=== PATIENT | female | born 1955 | race Caucasian/White ===

== ENCOUNTER 2018-06-28 13:27 | Inpatient (IN) | payer OTHER ==
[~2018-06-28] VITALS: Ht 167.6 cm; Wt 81.6 kg
[~2018-06-28 13:27] MED LIST: ACETAMINOPHEN325 MG PER TUBE; ASPIRIN325 PO; BACTRIM DS TAB1 EACH PO; BUSPIRONE HCL10 MG PER TUBE; CILOSTAZOL50 MG PO; CLOBETASOL PROP50 M1; COLACE100 MG; COLACE100 MG PO; FISH OIL 1,0001 EAC5 PO; FLONASE 0.05%50 MCG; FLUOXETINE HCL20 M1 PER TUBE; GLUCERNA 1.21500 ML; GLYCOLAX POWDER17 G1 PO; KEPPRA 500 MG500 M1; KLOR-CON 1010 MEQ; LEVOTHYROXIN0.137 M1 PER TUBE; MAGOX 400400 MG PER TUBE; MULTIVITAMINS1 EAC7 PER TUBE; OCEAN45 ML; ORAGEL; PROSTAT LIQUID PER TUBE; PROTONIX40 M1 PER TUBE; SIMVASTATIN40 MG PO; TERBINAFINE15 GM; TRAZODONE HCL50 MG PER TUBE; ZETIA10 MG PER TUBE; [UNRECOGNIZED DRUG - OTHER]
[2018-06-28 13:29] VITALS: BP 114/62
[2018-06-28 13:47] LABS: ABSOLUTE NEUTROPHILS 9.6 thou/uL (1.4-8.2); BASOPHILS 0.3 % (0.0-2.0); EOSINOPHILS 0.7 % (0.0-3.0); HEMOGLOBIN 11.3 gm/dL (12.0-15.0); LYMPHOCYTES 13.4 % (24.0-44.0); MCH 32.3 pg (26.0-34.0); MCHC 33.3 g/dL (28.0-37.0); MCV 97.3 fL (80.0-100.0); MONOCYTES 8.2 % (1.0-8.0); POLYS 77.4 % (36.0-66.0); RDW 14.2 % (10.5-14.5); WBC 12.4 thou/uL (4.0-11.0)
[2018-06-28 13:55] LABS: CALCIUM 9.1 mg/dL (8.5-10.1); CREATININE 1.7 mg/dL (0.6-1.0); POTASSIUM 4.5 mmol/L (3.5-5.1)
[2018-06-28] MEDS ORDERED: KEPPRA 100100 MG/M1 PER TUBE (14:10)
[2018-06-28] MEDS ORDERED: SYNTHROID112 MC1 PER TUBE (14:12)
[2018-06-28] MEDS ORDERED: MIRALAX17 GM PER TUBE (14:13)
[2018-06-28 14:15] LABS: LARGE PLATELETS FEW; PLATELET COUNT 65 thou/uL (150-400); PLATELET ESTIMATE SLIGHTLY DECREASED
[2018-06-28] MEDS ORDERED: POTASSIUM20 MEQ/15 PER TUBE (14:15)
[2018-06-28] MEDS ORDERED: OMEPRAZOLE 20 M20 M1 PER TUBE (14:16)
[2018-06-28] MEDS ORDERED: SENNA PLUS TAB1 EACH PER TUBE (14:16)
[2018-06-28] MEDS ORDERED: VITAMIN B-12500 MCG PER TUBE (14:18)
[2018-06-28] MEDS ORDERED: DANDRUFF 1% SH325 ML TOP (14:20)
[2018-06-28 14:23] LABS: BE(vivo) -1.6 mmol/L (-2 to +3); HCO3 22.1 mmol/L (22.0-26.0); PCO2 34.2 mmHg (35.0-45.0); PO2 69.5 mmHg (80.0-100.0); pH 7.429 (7.360-7.450); sO2 94.5 % (92.0-98.0)
[2018-06-28] MEDS ORDERED: NYSTATIN15 G3 TOP (14:38)
[2018-06-28 16:14] VITALS: BP 124/64
[2018-06-28 18:37] VITALS: BP 131/68
[2018-06-28 19:59] VITALS: BP 142/64
[2018-06-29 04:41] VITALS: BP 115/42
[2018-06-29 05:27] LABS: CALCIUM 9.4 mg/dL (8.5-10.1); CREATININE 1.7 mg/dL (0.6-1.0); MAGNESIUM 2.2 mg/dL (1.8-2.4)
[2018-06-29 05:38] LABS: POTASSIUM 4.7 mmol/L (3.5-5.1)
--- NOTE | 2018-06-29 05:58 | NUR ---
Received pt from ED at 1850. Pt resting in bed. Hx of stroke with left sided weakness. Came in after being dx with HCAP from her residency at [facility]. Shes non-verbal with a fixed gaze. Ischemic dementia. She was place on 4L NC. at bedside signed conscent and provided medical hx. She has no skin issues. Last bm on 06/29/18. ACHS. No identified needs at the moment. Will continue to monitor.
[2018-06-29 07:58] VITALS: BP 132/53
--- NOTE | 2018-06-29 09:32 | NUR ---
chart review, report from bedside nurse team. pt cristina at bedside. intro to cm, transition of care, ltc, and dcp. pt lying in bed, eyes open, she nonverbal, o2 per nc 3 L noted. reports " lives at [facility], 9 years. she is total care. bedbound. gets bed bath or up to shower chair. tri lift for transfers. only eats through tube feeding. she no usually on any oxygen. she will go back to [facility] when discharged. still working hs shift at [employer] 3pm-1am, not quiet retired."/cristina. will cont following as needed for dc needs. cm team to provided updates to cog. when dc will need stretcher transport back to [facility] rt pt unable to support her body position and is bed bound. dcp [facility]
[2018-06-29 09:51] LABS: HEMOGLOBIN 11.4 gm/dL (12.0-15.0); WBC 25.6 thou/uL (4.0-11.0)
[2018-06-29 09:54] LABS: HEMATOCRIT 34.3 % (37.0-47.0); MCH 32.2 pg (26.0-34.0); MCHC 33.2 g/dL (28.0-37.0); RBC 3.54 mil/uL (4.20-5.00)
--- NOTE | 2018-06-29 09:59 | 2DMMODE ---
[place] [address] [facility] [place] [address] 2 D/M-MODE ECHOCARDIOGRAM Name: KALIA LIRAN Room #: 462-P ADM IN M.R.#: [id number] ������������� Admission: 06/28/18 ������������� Attend Phys: Joe Poole, Discharge: ��� ������������� ��� Date of : 51 Date of Service: 06/29/18 0958 �� Report #: [id number] �������� ��������������������������������������������[id number] THIS REPORT FOR: //name// APPROVED REPORT Study performed: 06/29/2018 08:14:44 EXAM: Comprehensive 2D, Doppler, and color-flow Echocardiogram Patient Location: Bedside Room #: 462 Status: routine BSA: 2.00 BP: 115/42 mmHg Rhythm: Sinus arrhythmia/HR ranged 70s-110s Other Information Study Quality: Adequate Technically limited study due to nonverbal patient, no cooperation. Indications Short of breath, elevated BNP. Hx: CVA, HTN, DM. 2D Dimensions RVDd: 28.59 mm IVSd: 9.51 (7-11mm) LVOT Diam: 20.30 (18-24mm) LVDd: 49.94 mm PWd: 9.59 (7-11mm) Ascending Ao: 33.75 (22-36mm) LVDs: 34.18 (25-40mm) Aortic Root: 33.65 mm Volumes Left Atrial Volume (Systole) Single Plane 4CH: 38.22 mL Single Plane 2CH: 54.42 mL LA ESV Index: 25.00 mL/m2 Aortic Valve AoV Peak Talat.: 1.72 m/s AO Peak Gr.: 11.78 mmHg LVOT Max P.55 mmHg LVOT Max V: 1.07 m/s CRUZ Vmax: 2.01 cm2 Mitral Valve E/A Ratio: 1.4 [facility] [place] [address] 2 D/M-MODE ECHOCARDIOGRAM Name: KALIA LIRA SANDRINE Room #: 462-P [facility] IN M.R.#: [id number] ������������� Admission: 06/28/18 ������������� Attend Phys: Joe Poole, Discharge: ��� ������������� ��� Date of : 51 Date of Service: 06/29/18 0958 �� Report #: [id number] �������� ��������������������������������������������[id number] MV Decel. Time: 168.83 ms MV E Max Talat.: 1.21 m/s MV A Talat.: 0.86 m/s MV PHT: 48.96 ms IVRT: 76.12 ms Pulmonary Valve PV Peak Talat.: 0.87 m/s PV Peak Gr.: 3.06 mmHg Left Ventricle The left ventricle is normal size. There is normal left ventricular wall thickness. Left ventricular systolic function is normal. LVEF is 50-55%. No consistent pattern for assessment of diastolic function. Right Ventricle The right ventricle is normal size. The right ventricular systolic function is normal. Atria The left atrium size is normal. The right atrium size is normal. Aortic Valve Aortic valve is trileaflet. Mild aortic regurgitation. There is no aortic valvular stenosis. Mitral Valve The mitral valve is normal in structure. Minimal mitral annular calcification. Moderate to severe mitral regurgitation Tricuspid Valve The tricuspid valve is normal in structure. There is no tricuspid valve regurgitation noted. Unable to assess PA pressure. Pulmonic Valve The pulmonary valve is normal in structure. There is no pulmonic valvular regurgitation. Great Vessels The aortic root is normal in size. The ascending aorta is normal in size. IVC is not well visualized. Pericardium Small posterior pericardial effusion noted. [facility] [address] [place] [address] 2 D/M-MODE ECHOCARDIOGRAM Name: KALIA LIRA Room #: 462-P [facility] IN M.R.#: [id number] ������������� Admission: 06/28/18 ������������� Attend Phys: Joe Poole, Discharge: ��� ������������� ��� Date of : 51 Date of Service: 06/29/18 0958 �� Report #: [id number] �������� ��������������������������������������������[id number] <Conclusion> The left ventricle is normal size. LVEF is 50-55%. Aortic valve is trileaflet. Mild aortic regurgitation. The mitral valve is normal in structure. Minimal mitral annular calcification. Moderate to severe mitral regurgitation The tricuspid valve is normal in structure. There is no tricuspid valve regurgitation noted. Unable to assess PA pressure. The pulmonary valve is normal in structure. Small posterior pericardial effusion noted. ��������������������������������������������� <ELECTRONICALLY SIGNED> ���������������������������������������� By: Joshua Chaves MD ��������������������������������������������� 06/29/1858 7 Joshua Chaves MD /INF
--- NOTE | 2018-06-29 10:28 | NUR ---
Consult for TF recommendation. Pt's usual TF are Jevity 1.2, 45 ml/hr for 22 hr/day. Hospital equivalent would be Jevity 1.5. Recommend Jevity 1.5, 35 ml/hr for 24 hr/day, with additional water flushes to meet fluid needs.
[2018-06-29 10:29] LABS: PROTIME 10.8 Seconds (9.3-11.4)
[2018-06-29 12:32] LABS: SOURCE RIGHT THORACENTESIS
[2018-06-29 12:33] LABS: CLARITY CLOUDY; COLOR LIGHT BROWN; TOTAL VOLUME 58 mL
[2018-06-29 12:37] LABS: SOURCE RIGHT THORACENTESIS
[2018-06-29 13:08] LABS: BF NUCLEATED CELLS 7467; BF RBC 15680
[2018-06-29 13:37] LABS: BF NEUTROPHILS 63
[2018-06-29 13:38] LABS: BF MACROPHAGE 19
[2018-06-29 16:18] VITALS: BP 106/50
[2018-06-29 17:20] LABS: URINE BILIRUBIN NEGATIVE (Negative); URINE BLOOD 3+ (Negative); URINE CLARITY CLOUDY; URINE COLOR YELLOW; URINE GLUCOSE-RANDOM* NEGATIVE (Negative); URINE KETONES TRACE (Negative); URINE NITRITE-REFLEX NEGATIVE (Negative); URINE PROTEIN (DIPSTICK) 2+ (Negative); URINE UROBILINOGEN 0.2 E.U./dl (0.2-1.0)
[2018-06-29 17:23] LABS: URINE LEUKOCYTES-REFLEX 3+ (Negative)
[2018-06-29 17:33] LABS: CASTS None Seen /LPF (None Seen); CRYSTALS None Seen /LPF (None Seen); SQUAMOUS >10 Many /LPF (0-3); URINE WBC-REFLEX >25 Many /HPF (0-5)
[2018-06-29 17:35] LABS: URINE RBC 0-2 Rare /HPF (0-2)
--- NOTE | 2018-06-29 17:43 | NUR ---
PT A&OX1, VSS, PT UNABLE TO COMMUNICATE WANTS AND NEEDS; NON VERBAL. PT HAS BEEN AT BEDSIDE. THORACENTESIS, UA, AND MRSA SPECIMEN COLLECTED TODAY. PT HAS BEEN TURNED Q2 AND HAS BEEN RESTING IN BED. PT HAS HAD BREATHING TREATMENTS, ON 4L OXYGEN, NO SIGNS OF DISTRESS. WILL CONTINUE TO MONITOR.
[2018-06-29 21:02] VITALS: BP 117/46
--- NOTE | 2018-06-30 00:51 | NUR ---
ASSUMED PT CARE 1899. PT NON VERBAL. VSS. ALERT TO SELF. IV DRESSING C/D/I, NO SIGNS OF INFILTRATION. AT PT BEDSIDE. REASSESSMENT COMPLETE. REPORT GIVEN TO ONCOMING NURSE.
--- NOTE | 2018-06-30 01:41 | NUR ---
ASSUMED CARE AROUND 0115. UPON ARRIVAL TO THE PT'S ROOM FOR ROUNDING, NOTED THAT IV CAME OUT. INSERTED NEW ONE ON R HAND 22G. PT TOLERATED GOOD. IVF RESUMED AND IV ATB MEROPENEM ADMINISTERED. AT BEDSIDE.
[2018-06-30 04:32] VITALS: BP 117/48
[2018-06-30 05:22] LABS: HEMATOCRIT 33.3 % (37.0-47.0); HEMOGLOBIN 10.8 gm/dL (12.0-15.0); MCH 32.4 pg (26.0-34.0); MCHC 32.5 g/dL (28.0-37.0); MCV 99.7 fL (80.0-100.0); RBC 3.34 mil/uL (4.20-5.00); RDW 14.6 % (10.5-14.5); WBC 22.6 thou/uL (4.0-11.0)
[2018-06-30 05:46] LABS: CALCIUM 9.3 mg/dL (8.5-10.1); CREATININE 1.8 mg/dL (0.6-1.0); MAGNESIUM 2.3 mg/dL (1.8-2.4); POTASSIUM 4.4 mmol/L (3.5-5.1)
[2018-06-30 05:46] LABS: ALBUMIN 2.5 g/dL (3.4-5.0); CALCIUM 9.3 mg/dL (8.5-10.1); CREATININE 1.8 mg/dL (0.6-1.0); PHOSPHORUS 3.7 mg/dL (2.5-4.9); POTASSIUM 4.4 mmol/L (3.5-5.1)
[2018-06-30 08:48] VITALS: BP 108/51
[2018-06-30 16:49] VITALS: BP 117/53
--- NOTE | 2018-06-30 17:22 | NUR ---
PT IS A&O TO SELF, VSS. PT IS UNABLE TO COMMUNICATE WANTS AND NEEDS AND HAS AT BEDSIDE. WHEEZING HEARD IN ALL LOBES, ON 4L OXYGEN AND RECEIVING RT. PT HAS BEEN TURNED Q2. JEVITY FEEDING HAS BEEN INCREASED FROM 20 TO GOAL 35 AND IS TOLERATING. WILL CONTINUE TO MONITOR.
[2018-06-30 19:44] VITALS: BP 123/58
--- NOTE | 2018-07-01 01:01 | NUR ---
patient is non vebal. turned q 2 hours. patient has peg tube, zero residule this shift. patient is npo.patient hob is > 60 degress. no shortness of air or distress noted at this time. patient incontient this shift, pericare and barrier cream as needed. spouse at bedside. patient ccontinues to wheeze but is relieved after getting breathing treatment. patient in bed asleep at this time breathing regular and unlaboured.
[2018-07-01 03:40] VITALS: BP 103/39
[2018-07-01 05:17] LABS: HEMOGLOBIN 10.6 gm/dL (12.0-15.0); MCH 32.6 pg (26.0-34.0); RBC 3.25 mil/uL (4.20-5.00); RDW 14.3 % (10.5-14.5)
[2018-07-01 05:19] LABS: MCHC 33.1 g/dL (28.0-37.0); MCV 98.4 fL (80.0-100.0); WBC 8.9 thou/uL (4.0-11.0)
[2018-07-01 05:32] LABS: ALBUMIN 2.3 g/dL (3.4-5.0); CALCIUM 8.8 mg/dL (8.5-10.1); CREATININE 1.8 mg/dL (0.6-1.0); PHOSPHORUS 2.3 mg/dL (2.5-4.9); POTASSIUM 4.6 mmol/L (3.5-5.1)
[2018-07-01 07:41] VITALS: BP 101/60
[2018-07-01 08:06] LABS: BODY FLUID ALBUMIN 2.7 g/dL (()); BODY FLUID AMYLASE 50 U/L (()); BODY FLUID GLUCOSE 136 mg/dL (()); BODY FLUID LDH 363 IU/L (()); BODY FLUID PROTEIN 5.7 g/dL (())
[2018-07-01 11:04] LABS: % SATURATION 28 % (20-39); IRON 61 ug/dL (50-170); TIBC 215 ug/dL (250-450)
[2018-07-01 11:12] LABS: ALBUMIN 2.3 g/dL (3.4-5.0); DIRECT BILIRUBIN 0.1 mg/dL (<0.1-0.3); TOTAL BILIRUBIN 0.3 mg/dL (<0.1-1.0)
[2018-07-01 12:10] LABS: FOLIC ACID 38.8 ng/mL (8.6-58.9)
--- NOTE | 2018-07-01 13:37 | EKG ---
[address] [place] [address] ELECTROCARDIOGRAM REPORT Name: KALIA LIRA Room #: 462-P ADM IN M.R.#: [id number] ������������������ Admission: 06/28/18 ������������������ Attend Phys: Joe Poole MD Discharge: ������������������ Date of : 51 Report #: [id number] ����������������������������������������������������������������� [id number] THIS REPORT FOR: //name// [facility] Test Date: 2018-06-30 Test Time: 10:07:45 Pat Name: KALIA LIRA Department: Room: 462 Gender: F [employer] Lab Technician: : 1955 Requested By: Earlene Rios Order Number: [id number] MD: Sarwat Xiong Measurements Intervals [place] Rate: 75 P: 64 WI: 182 QRS: 7 QRSD: 120 T: -24 QT: 477 QTc: 533 Interpretive Statements Sinus rhythm Nonspecific ST and T wave abnormality Compared to ECG 06/20/2011 08:52:50 No significant change was found Electronically Signed On 07-01-2018 13:37:37 CDT by Sarwat Xiong [email or web address] ��������������������������������������������� <ELECTRONICALLY SIGNED> ���������������������������������������� By: Sarwat Xiong MD, [facility] ��������������������������������������������� 07/01/18 1337 1007 1007 Sarwat Xiong MD, [facility] /EPI
[2018-07-01 14:04] VITALS: BP 127/41
--- NOTE | 2018-07-01 18:01 | NUR ---
OPENS EYES OCCASIONALLY NOT TO COMMAND OR WITH STIMULI. NON VERBAL. PEG TUBE WITH JEVITY AT 30CC/HR. IV LEFT HAND WITHOUT ERYTHEMA OR EDEMA. INCONTINET OF URINE AND STOOL. TURNED EVERY 2HOURS. SCDS ON. LUNGS DIMINISHED AND WHEEZY ON ROOM AIR. SIDE RAILS UP X4 BY FAMILY REQUEST. DECIDED TO MAKE HER A DNR AND VERY TEARY. EMOTIONAL SUPPORT PROVIDED. HOB UP 45 DEGREES. PLATLETS INFUSED FOR A CRITICAL LOW COUNT OF 7000.
[2018-07-01 19:32] VITALS: BP 129/51
[2018-07-02 04:29] VITALS: BP 117/50
--- NOTE | 2018-07-02 05:59 | NUR ---
Assumed care at 1845. Pt resting in bed with at bedside. VSS. On room air. Turn Q2. Incontinent Bowel and Bladder. Had a bm today. Applied barrier cream. Jevity 1.5 running at 35ml/hr. 200ml QID flushes order by for the Pegtube. AOX1. Bed in lowest position. Will continue to monitor.
[2018-07-02 06:00] LABS: HEMOGLOBIN 9.9 gm/dL (12.0-15.0); RDW 14.3 % (10.5-14.5)
[2018-07-02 06:01] LABS: HEMATOCRIT 29.3 % (37.0-47.0); MCH 33.1 pg (26.0-34.0); MCHC 33.8 g/dL (28.0-37.0); MCV 97.9 fL (80.0-100.0); RBC 2.99 mil/uL (4.20-5.00); WBC 10.9 thou/uL (4.0-11.0)
[2018-07-02 06:09] LABS: CALCIUM 8.8 mg/dL (8.5-10.1); CREATININE 1.6 mg/dL (0.6-1.0); MAGNESIUM 2.3 mg/dL (1.8-2.4); POTASSIUM 4.5 mmol/L (3.5-5.1)
--- NOTE | 2018-07-02 07:13 | HC ---
[facility] [place] [address] CONSULTATION Name: KALIA LIRA Room #: 462-P ADM IN M.R.#: [id number] Admission: 06/28/18 ������������������ Attend Phys: Joe Poole MD Discharge: ������������������ Date of : 51 Report #: [id number] THIS REPORT FOR: //name// CC: MARY GRACE Forbes MD REQUESTING PHYSICIAN: Joe Poole MD. REASON FOR CONSULTATION: Thrombocytopenia. HISTORY OF PRESENT ILLNESS: The patient is a 62-year-old female from [facility] in [place] who was admitted for shortness of air and thought to have a pneumonia. In talking with her by phone, it sounded like she had low platelets, maybe, a year ago. He is not sure how low they were. It does not sound like intervention. He is not sure if they ever saw a blood doctor os not. Her last hospitalization may have been at [facility]. We do have records that she was at [facility] in about 2013 and in March of that year, her platelets were 223,000. On admit here, they were 65 on the 4th, on the 5th, they were 47,000, on the 6th, 42,000. Earlier today, they were 10,000, on repeat 7000. Her hemoglobin has been stable at around 10.6, white count was initially 12.4, is now 8.9. Differential fairly unremarkable. No acute forms. Also, note that recent coags were normal and also on her chemistries, BUN was 48, creatinine 1.8. Liver function that I ordered are normal. Total bilirubin is normal. Albumin is low at 2.3. LDH is 535. She is unable to answer questions. Her face appears symmetric. PAST MEDICAL HISTORY: Reportedly we do not have any records, but appears to be notable for ischemic CVAs in the past, also baseline renal insufficiency, some sort of dementia related to ischemic changes probably. says that she has been declining over the last several years, has been in a penitentiary for some time. She also has had dysphagia, has had a tube feeding for quite some time, also history of hypertension, hypothyroidism and hyperlipidemia. He was not sure if she had a seizure disorder or not. MEDICATIONS: She appears to be on prior to this admission included trazodone, Keppra, levothyroxine, MiraLax, potassium, omeprazole, B12, fluoxetine and multivitamins. Here in the hospital, her medications include guaifenesin liquid 40 mg q.4. Methylprednisolone 40 mg t.i.d. IV. Azithromycin 250 mg per tube daily, ipratropium and albuterol respiratory therapy q.4. Levetiracetam 500 mg b.i.d. Budesonide respiratory therapy 0.5 mg b.i.d., meropenem 500 mg IV q.8 hours. Insulin on a sliding scale, Senokot daily, omeprazole 20 mg daily, levothyroxine 112 mcg daily, fluoxetine 20 mg daily, MiraLax 17 grams b.i.d., [address] [address] CONSULTATION Name: KALIA LIRA Room #: 462-P [facility] IN M.R.#: [id number] Admission: 06/28/18 ������������������ Attend Phys: Joe Poole MD Discharge: ������������������ Date of : 51 Report #: [id number] trazodone 25 mg at bedtime, nystatin to skin, I believe it is twice daily. She had been on linezolid, but that has been discontinued. I am not sure if she received a dose or not. PHYSICAL EXAMINATION: GENERAL: The patient appears her stated age. She is in a hospital bed really not much responding even to palpation. When I put pressure on her lower jaw, she will open her mouth minimally and sort of groans at the same time. VITAL SIGNS: Her height is reported as 5 feet 6 inches, 167.6 cm. Weight is 180 pounds, 81.6 kilograms. Note that yesterday, it is reported as 200 pounds, but I am not sure which is correct. Blood pressure is currently 101/60, respirations 14, pulse 82, O2 sat 96%, temperature axillary is 97.4. She has been orally 99.6 earlier in the admit several days ago. MOOD: Cannot assess. She is quiet and not responding to voice or mild physical stimuli. NEUROLOGIC: Face appears symmetrical. She is not posturing. Pupils appear to be same size. SKIN: No evidence of ecchymosis. No blood that I can see in her mouth or her nares or in her urine catheter bag or around her feeding G-tube access site. CARDIOVASCULAR: Appears regular rate. LUNGS: Mostly clear, may be some soft rhonchi. LYMPHATICS: No enlarged lymph nodes in the supraclavicular, cervical, axillary or inguinal region. ABDOMEN: Obese. No definite organomegaly, does not appear to be tender. The patient does not wince. EXTREMITIES: Has SCDs. Does not appear to be any significant edema. No unusual ecchymosis. LABORATORY DATA: Other lab returned, they include a ferritin of 100. Folate is 38.8. Vitamin B12 of 316. On the repeat, platelets as I mentioned were 7, iron was 61, TIBC 215, which is low, percent saturation 28 ASSESSMENT AND PLAN: 1. Thrombocytopenia. In talking to the patient's , there may have been low a year ago, not sure what amount. We will get records from last several years from [facility] in [place]. The patient is on steroids, so she has ITP that the appropriate therapy. We will arrange for a transfusion. Check platelets 1 hour post and check them again tomorrow morning. We will also check peripheral smear review. Right now, I suspect that this is chronic the low platelets with perhaps infection and decreased production and increased use at this time. No signs of blood clots visible. 2. Pneumonia. Antibiotics per Infectious Disease 3. Code status. I did talk with the patient's about quality of life issues and whether she wishes to cross the line in terms if she would worsen with CPR or mechanical intubation. He said he already had wondered about whether to get that aggressive, he will think about it. I proposed to him that [address] [address] CONSULTATION Name: KALIA LIRA SANDRINE Room #: 462-P [facility] IN M.R.#: [id number] Admission: 06/28/18 ������������������ Attend Phys: Joe Poole MD Discharge: ������������������ Date of : 51 Report #: [id number] we consider doing everything we reasonably can to keep from getting sicker, but if in spite of our efforts she gets sicker that we perhaps chose not to intubate or do CPR. He will give some thought about this. I did talk with the patient's nurse who is aware and may bring this up with the patient's when he arrives. 4. History of ischemic cerebrovascular accident and dementia. Blood pressure management per others. 5. Diabetes mellitus, dietary changes and sliding scale insulin per others. 6. Hypertension. Meds per others. 7. Hypothyroid, on replacement. 8. Hyperlipidemia, not currently on medications. 9. Nutrition, is receiving tube feeding. We will follow with you. ��������������������������������������������� <ELECTRONICALLY SIGNED> ���������������������������������������� By: Attila Rubio MD ��������������������������������������������� 07/02/18 0713 1215 1622 Attila Rubio MD /nt
[2018-07-02 08:00] VITALS: BP 114/45
--- NOTE | 2018-07-02 10:02 | HC ---
[facility] [place] [address] CONSULTATION Name: KALIA LIRA Room #: 462-P ADM IN M.R.#: [id number] Admission: 06/28/18 ������������������ Attend Phys: Joe Poole MD Discharge: ������������������ Date of : 51 Report #: [id number] THIS REPORT FOR: //name// CC: Joe Poole Sofía Patel DATE OF SERVICE: 06/29/2018 INFECTIOUS DISEASE CONSULTATION: ATTENDING PHYSICIAN: Joe Poole MD. CONSULTATION REQUESTED: Jen Yao MD. REASON FOR CONSULTATION: Pneumonia, pleural effusion. HISTORY OF PRESENT ILLNESS: The patient is a 62-year-old white woman, resident of a local custodial with possibly vascular dementia diagnosed to have pneumonia yesterday and developed large right pleural effusion that is to be tapped today. All information on the patient is gathered from the review of records. DRUG ALLERGIES: OXYCODONE, MOXIFLOXACIN, PENICILLIN, TUBERCULIN SKIN TESTS, AMOXICILLIN. MEDICATIONS: She is on treatment with meropenem 1 gram IV every 12 hours, she did receive a single dose of 500 mg azithromycin. She remains on treatment with levetiracetam, insulin lispro per sliding scale, senna docusate sodium per feeding tube, omeprazole, levothyroxine, fluoxetine, polyethylene glycol and trazodone. PAST MEDICAL HISTORY: Previous cerebrovascular accidents and TIAs. Hypertension. Possibly vascular dementia and dysphagia requiring feeding gastrostomy. SOCIAL HISTORY: She is said to be and living in custodial. was with her earlier. He has gone. REVIEW OF SYSTEMS: Unable to obtain. PHYSICAL EXAMINATION: GENERAL: Chronically ill-appearing woman, stares blankly at me and says not a single word. VITAL SIGNS: Temperature maximum 99.6, pulse 116, respirations 16, BP 114/62 on admission. O2 saturation 93% on 4 liters oxygen nasal cannula. HEENMT: Pupils reactive. Conjunctivae normal. Mouth, unable to examine. She [facility] [address] [place] [address] CONSULTATION Name: KALIA LRIA Room #: [facility] M.R.#: [id number] Admission: 06/28/18 ������������������ Attend Phys: Joe Poole MD Discharge: ������������������ Date of : 51 Report #: [id number] follows no commands. NECK: Supple. LUNGS: Decreased breath sounds right lung biswas. HEART: S1, S2. No gallop. ABDOMEN: Obese. Gastrostomy tube in place. Soft. No palpable masses or megaly. PELVIC AND RECTAL: Deferred. EXTREMITIES: Normal. LABORATORY DATA: BUN 40, creatinine 1.7, glucose 159. Renal consult possibly is in order. Lactic acid 6.3 on admission, down to 1.6. LDH elevated at 535. NT-proBNP 2218. White blood cell count jumped up to 25,600, hemoglobin 11.4 g/dL and platelets are only 47,000. Note is made yesterday was 65,000 and previously normal. White blood cell count differential has revealed 77% segmented neutrophils yesterday. Procalcitonin normal. ABGs: pH 7.42, pCO2 of 34, pO2 of 69, lactate 2.65, methemoglobin normal. These set of gases on 3 liters oxygen nasal cannula. Note is made that in the year 2013, she had abdominal wall infection with MRSA and group G streptococcus. MICROBIOLOGY DATA: Blood cultures were obtained, they are negative so far. RADIOLOGY EVALUATION: CT scan of the chest without contrast revealed a large right-sided pleural effusion, small left pleural effusion and atelectasis. An x-ray of the abdomen was obtained and lo and behold the PEG is well positioned, reason not given for KUB. ASSESSMENT: 1. Right-sided pleural effusion, possible infectious. 2. Chronic kidney disease, possibly superimposed acute kidney injury. 3. Hypoxemia secondary to above. 4. Thrombocytopenia, question etiology. 5. Possible multiple infarcts -- vascular dementia. SUGGESTIONS: Recommend continue treatment with meropenem. We will change dose 500 mg IV every 8 hours. Continue Zithromax and MRSA coverage with Zyvox. MRSA screen is in order. Dr. Poole, thank you for requesting my suggestion. ��������������������������������������������� <ELECTRONICALLY SIGNED> ���������������������������������������� By: Paramjit Singleton MD ��������������������������������������������� 07/02/18 1002 1101 0151 Paramjit Singleton MD /nt
--- NOTE | 2018-07-02 11:02 | NUR ---
Dp sent updates to [facility], patient possibly ready for discharge today. Case management ot follow up.
[2018-07-02 15:00] VITALS: BP 127/58
[2018-07-02 16:06] LABS: HEMOGLOBIN 10.3 g/dL (11.1-15.9)
[2018-07-02 19:36] VITALS: BP 146/86
--- NOTE | 2018-07-02 20:44 | NUR ---
Assumed pt care this am, with G tube and tube feeding running at 35. Flushes did not work on the tube, referred to IR and Dr. Poole. GJ tube was placed by IR, flushing 200 ml qid with no issues. Restarted tube feeding and bottle was changed end of the shift. All oral medications crushed and given via PEG. Pt is non verbal and would stare out the window and would not respond when names is called our shoulder is touched. was at bed side for most of the day. Pt remains to be incontinent of bladder and blowe. POC followed.
[2018-07-03 04:03] VITALS: BP 121/62
--- NOTE | 2018-07-03 05:22 | NUR ---
EMILIANEHALT SLEPT PART OF THE NIGHT. PATIENT NON-VERBAL AND DOES NOT TURN BY HERSELF. PT WAS TURNED EVERY 2-3 HOURS. G AND J TUBES WERE FLUSHED X 3 THSI SHIFT. TUBE FEEDING AND ABX TREATMENT CONTINUED. IS AT BEDSIDE. PATIENT IS NOT PROGRESSING TOWARDS DC GOALS AT THIS TIME.
[2018-07-03 06:19] LABS: WBC 12.2 thou/uL (4.0-11.0)
[2018-07-03 06:21] LABS: HEMATOCRIT 29.4 % (37.0-47.0); HEMOGLOBIN 9.8 gm/dL (12.0-15.0); MCH 32.5 pg (26.0-34.0); MCHC 33.2 g/dL (28.0-37.0); MCV 98.1 fL (80.0-100.0)
[2018-07-03 08:36] VITALS: BP 129/59
--- NOTE | 2018-07-03 10:46 | NUR ---
EDWINA reviewed chart and spoke with nursing. Pt is progressing towards goals for discharge. Pt had peg tube replaced and tube feeding is being increased. EDWINA met with pt and spouse at bedside to provide update. Confirmed plan is for pt to return to [facility] when medically stable. Pt will need stretcher van transportation. EDWINA updated [facility] life skills coordinator. EDWINA is following to assist as needed with discharge planning.
--- NOTE | 2018-07-03 11:07 | PATH ---
[facility] [address] [place] [address] PATHOLOGY RPT PROCEDURE Name: KALIA LIRA Room #: 462-P ADM IN M.R.#: [id number] ������������������ Admission: 06/28/18 ������������������ Date of : 51 Discharge: Report #: [id number] Path Case #: [id number] Note [facility] Accession Number: [id number] TESTS RESULT FLAG UNITS REF RANGE LAB Clinician Provided Cytology Information No. of containers..01 Other (Miscellaneous) Source: PLEURAL FLUID DIAGNOSIS: 02 PLEURAL FLUID NEGATIVE FOR MALIGNANT CELLS. MESOTHELIAL CELLS ARE PRESENT. THIS INTERPRETATION INCLUDES EVALUATION OF A CELL BLOCK. MARKED ACUTE AND CHRONIC INFLAMMATION. Pathologist ICD10: 02 R06.02 Signed out by: 02 Hiwot Morrison MD, Pathologist NPI- [id number] Performed by: Nagi Delaney, Engineering Designer ([facility]) Gross description: 01 20ML, REDDISH YELLOW, CLOUDY /LCS FLAG LEGEND: L-Low Normal,H-High Normal,LL-Alert Low,HH-Alert High <-Panic Low,>-Panic High,A-Abnormal,AA-Critical Abnormal Performed at: [address] [place] [address] Wang Vigil MD, [address] [address] Hiwot Morrison MD, Specimen Comment: A courtesy copy of this report has been sent to Specimen Comment: [phone], . Specimen Comment: Report sent to / DR JANE Specimen Comment: A duplicate report has been generated due to demographic updates. Performed at: [address], [place], [place] [id number] MD Wang Vigil MD Phone: [phone]
[2018-07-03 15:32] VITALS: BP 133/56
--- NOTE | 2018-07-03 19:01 | NUR ---
Pt still is aphasic, GJ tube patent and flushing well. All medications are crushed and given via the peg tube. 200 cc of water was flushed twice this shift. All IV medication given, Pt turned Q2, bed bath given twice. Pt stable through out the shift, still incontinent of both bladder nd bowel. No issues identified. is at bedside. POC followed.
[2018-07-03 19:36] VITALS: BP 138/60
[2018-07-04 03:16] VITALS: BP 121/65
--- NOTE | 2018-07-04 06:00 | NUR ---
Pt. rested quietly at intervals during the night when checked on during frequent rounds. She is non-verbal. Incontinent of urine and christopher care given. Turned and repositioned. Tube feeding infusing via G-J tube without difficulty and is patent upon ausculation. Head of the bed is elevated. Bed alarm is on.
[2018-07-04 06:05] LABS: MCV 97.5 fL (80.0-100.0)
[2018-07-04 06:07] LABS: HEMATOCRIT 31.1 % (37.0-47.0); HEMOGLOBIN 10.3 gm/dL (12.0-15.0); MCH 32.3 pg (26.0-34.0); MCHC 33.1 g/dL (28.0-37.0); RBC 3.19 mil/uL (4.20-5.00); RDW 14.4 % (10.5-14.5); WBC 13.4 thou/uL (4.0-11.0)
[2018-07-04 06:21] LABS: ALBUMIN 2.3 g/dL (3.4-5.0); CREATININE 1.4 mg/dL (0.6-1.0); PHOSPHORUS 3.3 mg/dL (2.5-4.9); POTASSIUM 4.8 mmol/L (3.5-5.1)
[2018-07-04 07:33] VITALS: BP 142/70
[2018-07-04 14:20] VITALS: BP 144/69
--- NOTE | 2018-07-04 15:42 | NUR ---
CARE TEAM INDICATED THAT PT ISN'T MEDICALLY STABLE TO DISCHARGE BACK TO [facility] THIS DAY. PT IS GETTING PACKED RED BLOOD CELLS. CM TO FOLLOW INDICATED WITH DC PLANNING.
[2018-07-04 16:17] VITALS: BP 147/61
--- NOTE | 2018-07-04 19:30 | NUR ---
PT A&O TO SELF, VSS, NO PAIN USING FACES SCALE. PT HAS NEW IV PLACED UPPER ARM RIGHT. PT HAS HAD 1 UNIT OF PLATELETS HUNG TODAY D/T PLT COUNT BEING AROUND 13. PT AT BEDSIDE. PT TURNED Q2 HOUR. NO SIGNS OF DISTRESS. WILL CONTINUE TO MONITOR.
[2018-07-04 20:28] VITALS: BP 135/68
--- NOTE | 2018-07-05 03:21 | NUR ---
Assumed care at 1845. Pt resting in bed. Alert and oriented to self. On 2L NC. She is turn Q2. No skin issues. Incontient bowel and bladder. She none verbal. G-J tube with Javity 1.5 running at 35ml/hr. 1 unit of platelets given and platelet count repeated. Plan is to send her back to [facility] once the issue with platelets has been resolved. No idenfied needs at the moment. Bed in lowest position. Will continue to monitor.
[2018-07-05 04:00] VITALS: BP 133/67
[2018-07-05 05:13] LABS: HEMOGLOBIN 10.3 gm/dL (12.0-15.0); MCH 32.4 pg (26.0-34.0); MCHC 33.1 g/dL (28.0-37.0); MCV 97.9 fL (80.0-100.0); RBC 3.17 mil/uL (4.20-5.00); RDW 14.3 % (10.5-14.5); WBC 14.7 thou/uL (4.0-11.0)
[2018-07-05 05:24] LABS: CREATININE 1.3 mg/dL (0.6-1.0); POTASSIUM 4.7 mmol/L (3.5-5.1)
[2018-07-05 09:00] VITALS: BP 149/64
--- NOTE | 2018-07-05 14:03 | NUR ---
ASSUMED CARE AT 0700, SHIFT ASSESSMENT DONE, MEDS GIVEN THROUGH PEG TUBE. REMAINS NON-VERBAL, QUADRIPLEGIC. DENIES ANY OTHER CONCERNS. PEG TUBE FLUSH ORDERED, ACHS, COVERAGE GIVEN NEEDED. WILL CONTINUE TO ASSESS AND ASSIST WITH ADLs NEEDED.
[2018-07-05 14:41] VITALS: BP 129/59
[2018-07-05 20:00] VITALS: BP 146/57
[2018-07-06 03:00] VITALS: BP 136/78
[2018-07-06 04:44] LABS: HEMOGLOBIN 10.7 gm/dL (12.0-15.0)
[2018-07-06 04:47] LABS: HEMATOCRIT 32.6 % (37.0-47.0); MCH 32.7 pg (26.0-34.0); MCHC 32.9 g/dL (28.0-37.0); MCV 99.4 fL (80.0-100.0); RBC 3.27 mil/uL (4.20-5.00); WBC 16.2 thou/uL (4.0-11.0)
[2018-07-06 04:53] LABS: CALCIUM 8.2 mg/dL (8.5-10.1); CREATININE 1.3 mg/dL (0.6-1.0); POTASSIUM 4.6 mmol/L (3.5-5.1)
--- NOTE | 2018-07-06 07:26 | NUR ---
PT HAD NO MAJOR CHANGES THIS SHIFT. BREATHING AND ABX TREATMENT IS BEING CONTINUED. PT HAD A LARGE LOOSE BM THIS SHIFT. PT SLEPT PART OF THE SHIFT. SPOUSE IS AT BEDSIDE. PT WAS TURNED Q2-3 HOURS. PATIENT IS NOT PROGRESSING TOWARDS DISCHARGE GOALS AT THIS TIME.
[2018-07-06 14:20] VITALS: BP 143/59
--- NOTE | 2018-07-06 14:56 | NUR ---
CARE TEAM INDICATED THAT PT WILL LIKELY BE HERE OVER THE WEEKEND. THEY INDICATED THAT THEY ARE CONTINUEING TO ADMINISTER IV ABX AND MONITORING PT'S PLATELETS. CM TO FOLLOW INDICATED WITH DC PLANNING.
--- NOTE | 2018-07-06 18:38 | NUR ---
PT A&O TO SELF, VSS, NO PAIN USING THE FACES SCALE. PT LUNGS CLEAR NO SIGNS OF DISTRESS. PLATELETS ARE DRIFTING DOWN AND PLAN IS TO STOP THEM SOON POSSIBLE. WILL CONTINUE TO MONITOR.
[2018-07-06 20:17] VITALS: BP 113/63
--- NOTE | 2018-07-07 01:50 | NUR ---
PT TURNED Q2 HOURS PT SLEPT MOST OF THE NIGHT Q HOUR ROUNDING DONE.
[2018-07-07 04:38] VITALS: BP 135/56
[2018-07-07 05:10] LABS: RDW 14.6 % (10.5-14.5)
[2018-07-07 05:12] LABS: HEMATOCRIT 29.4 % (37.0-47.0); HEMOGLOBIN 9.8 gm/dL (12.0-15.0); MCH 32.7 pg (26.0-34.0); MCHC 33.3 g/dL (28.0-37.0); MCV 97.9 fL (80.0-100.0); WBC 12.2 thou/uL (4.0-11.0)
[2018-07-07 05:24] LABS: CREATININE 1.2 mg/dL (0.6-1.0); POTASSIUM 4.8 mmol/L (3.5-5.1)
[2018-07-07 08:00] VITALS: BP 128/77
[2018-07-07 09:08] LABS: HEMATOLOGY COMMENTS Note: (()); HEMOGLOBIN 10.3 g/dL (11.1-15.9)
--- NOTE | 2018-07-07 14:33 | NUR ---
PT A&O TO SELF, VSS, NO PAIN. PT TURNED Q2 HRS AND HAS HAD 200ML WATER FLUSHES TWICE THIS SHIFT. AT BEDSIDE. PLAN IS TO DC [facility] IN 24HRS. WILL CONTINUE TO MONITOR.
[2018-07-07 16:18] VITALS: BP 124/57
[2018-07-07 19:11] VITALS: BP 128/68
--- NOTE | 2018-07-08 03:57 | NUR ---
NYSTATIN CREAM APPLIED TO KRISTAN AREA PT TURNED Q2 PT SLEPT MOST OF THE NIGHT NO ISSUES OVERNIGHT.
[2018-07-08 04:27] LABS: HEMOGLOBIN 9.7 gm/dL (12.0-15.0); WBC 11.5 thou/uL (4.0-11.0)
[2018-07-08 04:29] LABS: MCH 32.9 pg (26.0-34.0); MCHC 33.4 g/dL (28.0-37.0); MCV 98.7 fL (80.0-100.0); RBC 2.93 mil/uL (4.20-5.00); RDW 14.6 % (10.5-14.5)
[2018-07-08 04:33] VITALS: BP 134/70
[2018-07-08 08:05] VITALS: BP 144/78
[2018-07-08 14:45] VITALS: BP 126/85
--- NOTE | 2018-07-08 14:46 | NUR ---
TOWARDS POC PT IS AWAKE AND ALERT, NON VERBAL. VSS, AFEBRILE, NO APPARENT DISTRESS NOTED. REMAINED ON CONT. TUBE FEEDING ON 35ML/HR A GOAL, NO RESIDUAL VOLUME, NOTED. ABD IS DISTENDED. GENERALIZED EDEMA NOTED. FALL BUNDLE IN PLACE. WILL CONTINUE TO MONITOR.
[2018-07-08 19:36] VITALS: BP 130/74
[2018-07-09 04:20] VITALS: BP 112/56
[2018-07-09 06:02] LABS: HEMATOCRIT 28.8 % (37.0-47.0); HEMOGLOBIN 9.5 gm/dL (12.0-15.0); MCH 32.8 pg (26.0-34.0); MCHC 33.1 g/dL (28.0-37.0); MCV 98.8 fL (80.0-100.0); RBC 2.91 mil/uL (4.20-5.00); RDW 14.8 % (10.5-14.5); WBC 12.2 thou/uL (4.0-11.0)
[2018-07-09 06:25] LABS: CALCIUM 8.2 mg/dL (8.5-10.1); CREATININE 1.1 mg/dL (0.6-1.0)
--- NOTE | 2018-07-09 07:56 | NUR ---
Assumed care at 1845. Pt resting in bed. AOX1. Applied barrier cream. GJ Tube not flushing informed PORCELAIN MIXER. Flushed tubing with enzyme onetime. Incontinent Bowel and Bladder. L FA saline lock. 2L NC. Afib on TELE. DNR. No identified needs at the moment. Will continue to monitor.
[2018-07-09 08:10] VITALS: BP 138/62
--- NOTE | 2018-07-09 09:07 | NUR ---
ASSUMED CARE OF PT APPROX 0715, NOC NURSE REPORTED GJ TUBE STOPPED UP, COULDN'T ASPIRATE NOR FLUSH SO TUBE FEED SHUT DOWN, TRIED BOTH, UNSUCCESSFULLY. SPOUSE NADINE STATES THEY HAVE A ROTO ROOTER TYPE INSTRUMENT AT HER NS HOME THEY USE. THIS IS A NEW TUBE PER READING REPORT. HAVE FOLLOW ORDERS W/SODIUM BICARB AND IF SUCCESSFUL CRUSH AND GIVE ALL MEDS SAVE FOR PROZAC IT'S NOT TO BE CRUSHED AND GIVE PHYSICIAN FYI. ENCOURAGED SPOUSE TO USE ARGUETA FOR NEEDS, COMMUNICATE W/FREDDY I PERFORM ACTIVITIES, SHE DOESN'T HOLD EYE CONTACT YET. WATCHING CARTOON, TURN Q2 HOURS FOR SKIN INTEGRITY, REPORTS OF REDDENED BOTTOM THATS HAD CREAM APPLIED. WILL CONTINUE TO MONITOR
[2018-07-09 14:33] VITALS: BP 113/53
--- NOTE | 2018-07-09 15:48 | NUR ---
PT HAVING GJ TUBE REPLACED. ALTHOUGH SPOUSE IS AWARE AND AGREED TO IT THIS A.M. HE DIDN'T ANSWER PHONE X3, NEITHER DID SON, CALLED DR. COLUNGA HE SPOKE EARLIER WITH ANOTHER RN FAMIIAR WITH PT, HE AGREED SPOUSE GAVE HIM VERBAL CONSENT.
[2018-07-09] MEDS ORDERED: PULMICORT0.5 MG/21 INH (15:57)
[2018-07-09] MEDS ORDERED: ROBITUSSIN100 MG/53 PER TUBE (15:58)
[2018-07-09] MEDS ORDERED: MEDROL DOSPAK21 TA1 PO (16:01)
--- NOTE | 2018-07-09 16:34 | NUR ---
CARE TEAM INDICATED THAT PT WILL LIKELY BE MEDICALLY STABLE TO DISHCARGE TO [facility] THIS EVENING FOLLOWING REPLACEMENT OF HER GJ TUBE. [facility] TO BE SET UP FOR 1800. CHART COPY MADE, ORDERS TO BE FAXED TO . REPORT TO BE CALLED TO . DC CHEMICAL STRENGTH TESTER TO NOTIFY SPOUSE.
--- NOTE | 2018-07-09 16:48 | NUR ---
patient to dc today to [facility] via [facility] ambulance, 2L oxygen, feeding tube, peg tube. Family notified, unit notified, chart copy ordered and papers including ambulance papers sent to payroll secretary for cc and patient's chart. Stacie at [facility] notified.
--- NOTE | 2018-07-11 10:31 | HC ---
[facility] [place] [address] CONSULTATION Name: KALIA LIRA Room #: 462-P [facility] IN M.R.#: [id number] Admission: 06/28/18 ������������������ Attend Phys: Joe Poole MD Discharge: 07/09/18 ������������������ Date of : 51 Report #: [id number] THIS REPORT FOR: //name// CC: Joe Poole Sofía Patel DATE OF SERVICE: 06/29/2018 REASON FOR CONSULTATION: Renal insufficiency. HISTORY OF PRESENT ILLNESS: This 62-year-old group home patient with apparently rather severe dementia, either related to stroke or other, has been in extended care facility for many years, has had G-tube feeding, so she has been unable to eat for many years, but apparently had worsening mental status and shortness of air, was diagnosed with pneumonia and worsened and was taken to [facility] where she has never been an inpatient before from her extended care facility. She has the known history of dementia and stroke and chronic feeding through a G-tube for apparently many years. Unfortunately, we have no records from the extended care facility at least that I can see. Apparently, has had hypertension and diabetes as well. MEDICATIONS: List is reported as trazodone 25 mg at bedtime, Keppra 500 mg b.i.d., Synthroid 112 mcg daily, MiraLax, potassium, omeprazole 20 mg daily, fluoxetine 40 mg daily. REVIEW OF SYSTEMS: Could not be taken. PHYSICAL EXAMINATION: GENERAL: Chronically ill-appearing patient. She has an apparent right-sided facial palsy. HEENT: Extraocular movements does not follow commands. Mucous membranes are moist. NECK: Supple. CHEST: Shows coarse breath sounds. HEART: Regular. ABDOMEN: Soft and appears to have some slight guarding. EXTREMITIES: Show no edema. NEUROLOGIC: She possibly makes attempts to follow simple request with movement of her right hand and her right leg, but not really with closing her eyes or any movement on the left. ASSESSMENT AND PLAN: 1. Chronic renal insufficiency. She has had creatinines when brought in here in the past of 2.7 and 3.7; now, she is 1.7, unclear what the chronicity of the situation is here. She has had urinalysis done remotely, which did reveal some proteinuria and of course, she is a diabetic and this could well be chronic [facility] [address] [place] [address] CONSULTATION Name: KALIA LIRA Room #: 462-P [facility] IN .R.#: [id number] Admission: 06/28/18 ������������������ Attend Phys: Joe Poole MD Discharge: 07/09/18 ������������������ Date of : 51 Report #: [id number] kidney disease. In terms of radiologic studies five years ago, she had a CT abdomen and pelvis. At that time, kidneys were somewhat atrophic. 2. Elevated creatinine. I believe this is likely quite chronic that her creatinine at 1.7 is not elevated for her at this time and I will just provide gentle IV fluids. We will try to recheck her urine, take a look at that and consider further workup as we go forward. She may well have an acute infection of some sort, possibly pneumonia. She did have a thoracentesis done, studies of which are pending in terms of possible infection and/or empyema. She is a little tender in the abdomen as well. She had elevated lactic acid, but that seems to have corrected. ��������������������������������������������� <ELECTRONICALLY SIGNED> ���������������������������������������� By: Ralph Kaba MD ��������������������������������������������� 07/11/18 1031 1308 [id number] Ralph Kaba MD /nt
== END 2018-07-09 18:00 | DRG 871 ==
LOC: ER 13:27 → 4W 15:59 → EROBS 15:59 → 4W 19:05
PROVIDERS: Emergency Medicine; Hospitalist; Internal Medicine Hematology & Oncology; Internal Medicine Nephrology; ADMIT Internal Medicine
PROC: 0W993ZZ Drainage of Right Pleural Cavity, Percutaneous Approach (ICD-10-PCS; principal; 2018-06-29)
PROC: 30233R1 Transfusion of Nonautologous Platelets into Peripheral Vein, Percutaneous Approach (ICD-10-PCS; 2018-07-01)
PROC: 0D20XUZ Change Feeding Device in Upper Intestinal Tract, External Approach (ICD-10-PCS; 2018-07-02)
PROC: 0D20XUZ Change Feeding Device in Upper Intestinal Tract, External Approach (ICD-10-PCS; 2018-07-09)
DX: A41.9 Sepsis, unspecified organism (principal); J18.9 Pneumonia, unspecified organism; J96.01 Acute respiratory failure with hypoxia; N17.9 Acute kidney failure, unspecified; J90 Pleural effusion, not elsewhere classified; G93.49 Other encephalopathy; I13.0 Hypertensive heart and chronic kidney disease with heart failure and stage 1 through stage 4 chronic kidney disease, or unspecified chronic kidney disease; E03.9 Hypothyroidism, unspecified; Y95 Nosocomial condition; Z66 Do not resuscitate; N18.9 Chronic kidney disease, unspecified; D69.6 Thrombocytopenia, unspecified; E11.22 Type 2 diabetes mellitus with diabetic chronic kidney disease; F01.50 Vascular dementia, unspecified severity, without behavioral disturbance, psychotic disturbance, mood disturbance, and anxiety; I34.0 Nonrheumatic mitral (valve) insufficiency; F32.9 Major depressive disorder, single episode, unspecified; I50.9 Heart failure, unspecified; T38.0X5A Adverse effect of glucocorticoids and synthetic analogues, initial encounter; Y92.89 Other specified places as the place of occurrence of the external cause; Z86.73 Personal history of transient ischemic attack (TIA), and cerebral infarction without residual deficits; Z93.1 Gastrostomy status; Z79.4 Long term (current) use of insulin; Z79.899 Other long term (current) drug therapy; Z88.1 Allergy status to other antibiotic agents; Z88.0 Allergy status to penicillin; Z88.8 Allergy status to other drugs, medicaments and biological substances
CPT/HCPCS: 10045

== ENCOUNTER 2018-07-24 12:37 | Inpatient (IN) | payer OTHER ==
[~2018-07-24] VITALS: Ht 157.5 cm; Wt 77.1 kg
[~2018-07-24 12:37] MED LIST changes: +DANDRUFF 1% SH325 ML TOP; +KEPPRA 100100 MG/M1 PER TUBE; +MEDROL DOSPAK21 TA1 PO; +MIRALAX17 GM PER TUBE; +NYSTATIN15 G3 TOP; +OMEPRAZOLE 20 M20 M1 PER TUBE; +POTASSIUM20 MEQ/15 PER TUBE; +PULMICORT0.5 MG/21 INH; +ROBITUSSIN100 MG/53 PER TUBE; +SENNA PLUS TAB1 EACH PER TUBE; +SYNTHROID112 MC1 PER TUBE; +VITAMIN B-12500 MCG PER TUBE
[2018-07-24 13:15] VITALS: BP 118/66
--- NOTE | 2018-07-24 13:38 | NUR ---
recommend jevity 1.5 at 45ml/hr x 24 hrs. If pt not on IVF maintenance fluids, then add 200ml water flush QID.
[2018-07-24 15:36] VITALS: BP 106/61
[2018-07-24 15:48] LABS: TOTAL PROTEIN 6.6 g/dL (6.4-8.2)
[2018-07-24 16:24] LABS: TSH 1.475 uIU/mL (0.358-3.740)
--- NOTE | 2018-07-24 17:20 | NUR ---
PT IN FOR IVIG. IS CONTRACTED BILATERALLY AND NO VESSELS AVAIL FOR A PIV. PER HOSPITAL P&P A 4FRSLMIDLINE PLACED IN RUABRACHIAL. TRIMMED AT 20CM AND INSERTED TO 17CM WITH A BRISK BLOOD RETURN.
--- NOTE | 2018-07-24 18:30 | NUR ---
PT RECEIVED DIRECT ADMIT TO [address] ARCEO'S OFFICE FOR LOW PLATELETS. PT NONVERBAL FROM PAST CVA. DR. ALBERTO SAW PT ON ADMISSION. ORDERS RECEIVED. PT TURNED Q2HRS. NPO W/ JEVITY 1.5 AT 45MLS PER J-TUBE. MEDS PER G-TUBE. PT PREMEDICATED FOR IMMUNE GLOBULIN.
--- NOTE | 2018-07-24 19:46 | NUR ---
ASSUMED CARE, IVIG STILL NOT STARTED. PRE MEDS GIVEN BY DAY RN. PHARMACY WAS CALLED FOR RATE ASSISTANCE, SAID THEY WILL CALL BACK.
[2018-07-24 20:00] VITALS: BP 104/58
[2018-07-24 20:57] LABS: CALCIUM 9.1 mg/dL (8.5-10.1); CREATININE 1.4 mg/dL (0.6-1.0)
[2018-07-24 22:15] LABS: HEMATOCRIT 29.5 % (37.0-47.0); HEMOGLOBIN 9.8 gm/dL (12.0-15.0); MCV 98.8 fL (80.0-100.0); WBC 7.8 thou/uL (4.0-11.0)
[2018-07-24 22:16] LABS: MCH 32.9 pg (26.0-34.0); MCHC 33.3 g/dL (28.0-37.0); RBC 2.99 mil/uL (4.20-5.00); RDW 16.4 % (10.5-14.5)
[2018-07-25 04:30] VITALS: BP 107/48
[2018-07-25 05:09] LABS: RBC 2.87 mil/uL (4.20-5.00)
[2018-07-25 05:11] LABS: HEMATOCRIT 28.3 % (37.0-47.0); HEMOGLOBIN 9.5 gm/dL (12.0-15.0); MCH 32.9 pg (26.0-34.0); MCHC 33.5 g/dL (28.0-37.0); MCV 98.3 fL (80.0-100.0); RDW 15.8 % (10.5-14.5); WBC 4.3 thou/uL (4.0-11.0)
[2018-07-25 05:21] LABS: CALCIUM 8.6 mg/dL (8.5-10.1); CREATININE 1.6 mg/dL (0.6-1.0); MAGNESIUM 2.3 mg/dL (1.8-2.4); POTASSIUM 5.1 mmol/L (3.5-5.1)
--- NOTE | 2018-07-25 05:49 | NUR ---
PT HAS BEEN TURNED/REPOSITIONED EVERY TWO HOURS WITH X2 ASSIST, INCONTINENT OF B/B, NO BM PASSED THIS SHIFT, SOME REDNESS TO COCCYX, CREAM APPLIED, PEG TUBE FEEDING ONGOING, NO NAUSEA NOTED, KEPT HOB ELEVATED, PT TOLERATED IVIG, ON ROOM AIR, ORAL CARE GIVEN, MEDS VIA PEG TUBE, SCDS TO BLE, AT [facility], PLATELET LAST NOC WAS 8 AND WAS CALLED TO [facility] DIETZ WITH NO FURTHER ORDERS SINCE PT WAS ALREADY ON IVIG, HOURLY ROUNDING, MONITORED.
[2018-07-25 08:24] LABS: APTT 23.8 Seconds (24.5-32.8); PROTIME 10.2 Seconds (9.3-11.4)
[2018-07-25 08:51] VITALS: BP 108/53
--- NOTE | 2018-07-25 10:39 | NUR ---
INITIAL ASSESSMENT: Pt evaluated for d/c planning needs. Reviewed chart and spoke with nurse, pt and pt's spouse. Pt is a fdc care resident at [facility]. Pt is dependent for all cares. Spouse said he plans on pt returning to [facility] on d/c from hospital. Will remain available to assist as needed.
--- NOTE | 2018-07-25 12:42 | NUR ---
ASSUMED CARE AT 0700, SHIFT ASSESSMENT DONE, MEDS GIVEN VIA PEG TUBE. VSS. AWAKE, NONVERBAL. TOLERATING FEEDING WELL, NO RESIDUAL NOTED. SOME FECAL IMPACTION. DR ALBERTO ORDERED AN ENEMA, WILL ADMINISTER THIS AFTERNOON. NO APPARENT PAIN NOTED. WILL CONTINUE TO ASSESS AND ASSIST WITH ADLs NEEDED.
--- NOTE | 2018-07-25 15:49 | NUR ---
FAXED CLINICAL UPDATE TO [facility] LEFT MSG WITH LI IN ADM.THAT UPDATE FAXED. DCP TO FOLLOW.
[2018-07-25 16:00] VITALS: BP 105/64
[2018-07-25 19:30] VITALS: BP 104/57
--- NOTE | 2018-07-25 19:58 | NUR ---
DR ALBERTO GAVE ORDER FOR FLEET'S ENEMA. ORDER IMPLEMENTED, LARGE SEMI-SOLID BM AFTER ADMINISTRATION OF ENEMA. TOLERATING TUBE FEEDING WELL. WILL CONTINUE TO ASSESS AND ASSIST WITH ADLs NEEDED.
--- NOTE | 2018-07-26 03:31 | NUR ---
PT RESTING GOOD, NON VERBAL, TUBE FEEDING INFUSING, HOB KEPT 30 DEGREES, TURNED EVERY 2HOURS, INCONTINENT OF BLADDER, X1 BM THIS SHIFT, ORAL CARE GIVEN, SCDS TO BLE, TOLERATED IVIG, HOURLY ROUNDING, MONITORED.
[2018-07-26 04:34] LABS: HEMOGLOBIN 8.9 gm/dL (12.0-15.0); MCH 33.4 pg (26.0-34.0); RBC 2.66 mil/uL (4.20-5.00)
[2018-07-26 04:36] LABS: HEMATOCRIT 26.1 % (37.0-47.0); MCV 98.2 fL (80.0-100.0); RDW 15.8 % (10.5-14.5); WBC 7.6 thou/uL (4.0-11.0)
[2018-07-26 04:42] LABS: CALCIUM 8.6 mg/dL (8.5-10.1); CREATININE 1.6 mg/dL (0.6-1.0); MAGNESIUM 2.4 mg/dL (1.8-2.4); POTASSIUM 4.6 mmol/L (3.5-5.1)
[2018-07-26 05:40] VITALS: BP 108/59
[2018-07-26 07:10] VITALS: BP 113/50
--- NOTE | 2018-07-26 09:00 | HC ---
Former[facility] [place] [address] [place] [address] CONSULTATION Name: KALIA LIRA Room #: 422-P ADM IN M.R.#: [id number] Admission: 07/24/18 ������������������ Attend Phys: Joe Poole MD Discharge: ������������������ Date of : 51 Report #: [id number] THIS REPORT FOR: //name// CC: Sarwat Xiong MD [facility] Joe Patel Sofía Patel Nursing Cardiac Cath Technologist HISTORY OF PRESENT ILLNESS: The patient is a 62-year-old nonverbal post-stroke patient who I had met on 06/28 admission for thrombocytopenia. She at that time was thought to have ITP. There was improving and when she left the hospital on 07/09, the platelets were up to 52,000. She completed her Medrol Dosepak taper and unfortunately last week, her platelets were down to 20,000. We had arranged for her to come and see me on Monday. She showed up on Monday. Yesterday, her platelets were about 13,000. No bleeding. No recent fevers or chills. No new medications. In talking with her , we decided to admit her for aggressive therapy. He states that she is not aware that she has had any new fevers, chills, colds, bleeding, skin rash, new medication exposures. We talked about whether to be aggressive with therapy or whether to go with hospice. He wishes to treat her at least at this point in time. Note on review of old records, the patient was last at [facility] in 03/2013. At that time, her platelet count was about 223,000. Also, last admit, we had received labs showing the patient had platelet counts in the 50,000 to 60,000 range for perhaps the last year to year and a half. When she was admitted on 06/28/2018, her platelets were 65,000; on the , they were found to be 7000; they transfused up and later that day were 60,000; on the , they were down to 13,000, again a transfusion bumped them up to 70,000; on the , they were 27 and then on the , on their own up to 37; on the date of discharge, 07/09, up to 52,000. During her last admission, her B12 level was normal at 567, her folate was normal at 38.8, her immature platelet fraction was greatly elevated at 17.7 suggesting these were fresh platelets consistent with ITP. Also, note that a peripheral smear review showed rare large and giant platelets. CT of the chest done for the lung function did not show any lymphadenopathy. Iron panel was normal. TSH was normal. Coags were normal. Ultrasound of the legs was normal. PAST MEDICAL HISTORY: Notable for what appears to be chronic ITP with now acute exacerbation, now perhaps refractory ITP. The patient also has a history of chronic renal insufficiency, dementia and not interactive state due to past ischemic strokes. Also, history of hypertension, history of diabetes, history of hyperlipidemia. Also, history of chronic tube feeding. The patient has moderate to severe mitral regurgitation on echo from 06/2018 with an EF of 50-55%. [facility] [address] [place] [address] CONSULTATION Name: KALIA LIRA Room #: 422-P [facility] IN M.R.#: [id number] Admission: 07/24/18 ������������������ Attend Phys: Joe Poole MD Discharge: ������������������ Date of : 51 Report #: [id number] SOCIAL HISTORY: Nonsmoker, nondrinker. Unknown to this author whether what type of work she did in the past. MEDICATIONS: At this time in the hospital include omeprazole which I just added for prophylaxis, fluoxetine 40 mg daily, old medicine, Senokot 1 tab daily, levothyroxine 112 mcg daily, MiraLax 17 grams b.i.d., levetiracetam 500 mg b.i.d., trazodone 25 mg at bedtime, budesonide 0.5 mg respiratory therapy b.i.d. inhalation, guaifenesin q.4 hours, nystatin apply to affected area topically. The patient is now receiving the IVIG intended dose 400 mg/kg daily x 4 days, Tylenol p.r.n., dexamethasone 40 mg daily for 4 days orally. LABORATORY RESULTS THIS ADMIT: Include electrolytes essentially normal with a BUN of 42, creatinine of 1.6, glucose of 223. Transaminases 3 weeks ago were normal including AST, ALT, total bilirubin and alkaline phosphatase. Albumin slightly low at 3. White count 4.3 today; hemoglobin 9.5 today, it had been 9.8 yesterday; RDW is stable at 15.8; MCV 98.3; platelet count yesterday 8000, today 11,000. PHYSICAL EXAMINATION: GENERAL: The patient appears her stated age. is present in the room. VITAL SIGNS: Height reported 5 feet 2 inches which is 157.5 cm, weight 170 pounds or 77.1 kilograms. Blood pressure is 107/48, O2 sat 96%, respirations 20, pulse 62, temperature 99.0. MOOD: Cannot assess. NEUROLOGIC: The patient is not interactive with the environment. Eyes are open. Does not respond to voice that I can tell, though compared to when she was admitted last time, she is more awake. LYMPHATICS: No enlarged lymph nodes in the supraclavicular, cervical, axillary or inguinal region. ABDOMEN: Obese. No definite organomegaly. Does not appear to be tender. EXTREMITIES: Without clubbing or cyanosis. SKIN: No petechiae on arms or legs. The patient will not open mouth to check for petechiae on her soft palate. No blood in her nares or on her lips, on her gums, on her eyes. ASSESSMENT AND PLAN: 1. Jsbij-yg-wjsadkz idiopathic thrombocytopenic purpura. Impression from the last time that the patient improved platelet count on own with continuation of steroids and was then dropped back down again. We will check for a monoclonal protein with a serum protein and serum immunofixation. We will also check a CAT scan of abdomen to make sure we do not see any lymphadenopathy down there. We will continue with dexamethasone for 4 days and IVIG for a total of about 2 grams per kilogram. The patient's aware that the patient could still have significant bleeding. No signs of bleeding. We will follow serial blood counts. 2. Code status is DNR. [address] [address] CONSULTATION Name: ROSEMARY LIRACHLOE DELUCA Room #: 422-P [facility] IN M.R.#: [id number] Admission: 07/24/18 ������������������ Attend Phys: Joe Poole MD Discharge: ������������������ Date of : 51 Report #: [id number] 3. History of ischemic cerebrovascular accident, same nonverbal, not interactive state. 4. Chronic kidney disease. Creatinine stable at 1.4-1.6. 5. Diabetes mellitus type 2, insulin and other agents. 6. Hypertension per others. 7. Hypothyroid, replaced. 8. Hyperlipidemia per others. 9. Nutrition. Continues tube feeding. 10. Prophylaxis. Sequential compression devices in place, talked with pharmacist and as above added omeprazole. We will follow. ��������������������������������������������� <ELECTRONICALLY SIGNED> ���������������������������������������� By: Attila Rubio MD ��������������������������������������������� 07/26/1800 0808 Attila Rubio MD /nt
--- NOTE | 2018-07-26 18:00 | NUR ---
PT AWAKE W/O SIGNS OF PAIN. SLEPT SOME THIS AFTERNOON. VOIDS LARGE AMTS YELLOW URINE. TURNED Q2HRS. PETECHIAE NOTED ON BOTTOM. IN THIS AM AND DR. ARCEO DISCUSSED PLAN OF CARE. IV IG INFUSING AFTER PREMEDICATION.
--- NOTE | 2018-07-26 18:15 | NUR ---
PT RECEIVED FROM THE ER AT 1745 ALERT AND IN NO ACUTE DISTRESS. SETTLED PT INTO BED AND MADE COMFORTABLE. EATING DINNER AT PRESENT TIME. ADMITTING RN COMING.
[2018-07-26 19:38] VITALS: BP 105/41
[2018-07-27 03:15] VITALS: BP 107/46
--- NOTE | 2018-07-27 04:16 | NUR ---
Assumed care of pt at 1900. Pt nonverbal. Does not appear in any distress. Q2h turn. J/G tube in place. On continuous tube feedings. Incontinent of b&b. Fall precautions in place. Will continue to monitor.
[2018-07-27 04:58] LABS: CREATININE 1.7 mg/dL (0.6-1.0); MAGNESIUM 2.3 mg/dL (1.8-2.4); POTASSIUM 4.5 mmol/L (3.5-5.1)
[2018-07-27 05:57] LABS: HEMATOCRIT 26.4 % (37.0-47.0); HEMOGLOBIN 8.9 gm/dL (12.0-15.0); MCH 33.5 pg (26.0-34.0); MCHC 33.7 g/dL (28.0-37.0); MCV 99.3 fL (80.0-100.0); RBC 2.66 mil/uL (4.20-5.00); RDW 15.8 % (10.5-14.5); WBC 5.9 thou/uL (4.0-11.0)
[2018-07-27 08:12] VITALS: BP 124/60
--- NOTE | 2018-07-27 10:45 | NUR ---
Following for d/c planning needs. Received request from physician to explore options for coverage of Promacta or Rituxan (outpatient). Referral sent to [facility]. They are unable to provide Promacta to pt at facility.
[2018-07-27 16:06] LABS: IgA 330 mg/dL (87-352); IgG 2204 mg/dL (700-1600); IgM 84 mg/dL (26-217)
--- NOTE | 2018-07-27 17:07 | NUR ---
ASSUMED CARE OF PT AT 0700. ASSESSMENT COMPLETED. PT NONVERBAL AT BASELINE, DOES NOT FOLLOW COMMANDS. DOES NOT APPEAR TO BE IN PAIN OR ANY DISTRESS. ROOM AIR. TUBE FEEDING AT GOAL. MEDS GIVEN PER TUBE ORDERED. AT BEDSIDE EARLIER. PT IN STABLE CONDITION. WILL CONTINUE TO MONITOR UNTIL EOS.
[2018-07-27 17:27] VITALS: BP 121/55
[2018-07-27 19:11] VITALS: BP 116/54
[2018-07-27 20:05] LABS: GLOBULIN TOTAL 4.2 g/dL (2.2-3.9); M-SPIKE Not Observed g/dL (Not Observed)
[2018-07-28 03:56] VITALS: BP 129/52
[2018-07-28 05:02] LABS: CALCIUM 7.9 mg/dL (8.5-10.1); CREATININE 1.8 mg/dL (0.6-1.0); MAGNESIUM 2.5 mg/dL (1.8-2.4); POTASSIUM 4.9 mmol/L (3.5-5.1)
[2018-07-28 05:05] LABS: HEMOGLOBIN 8.8 gm/dL (12.0-15.0)
[2018-07-28 05:07] LABS: HEMATOCRIT 26.3 % (37.0-47.0); MCH 33.4 pg (26.0-34.0); MCHC 33.6 g/dL (28.0-37.0); MCV 99.5 fL (80.0-100.0); RBC 2.64 mil/uL (4.20-5.00); RDW 15.3 % (10.5-14.5); WBC 5.3 thou/uL (4.0-11.0)
[2018-07-28 07:15] VITALS: BP 126/52
--- NOTE | 2018-07-28 08:03 | NUR ---
ASSUMED CARE @ 19:15. IN BED, NON VERBAL, BED BOUND. IG RUNNING BY IV IN R UPPER ARM. PEG TUBE FEEDING OF 1.5 JEVITY RUNNING @ 45CC/HR. REPOSITIONED Q2HOUR. WILL CONTINUE TO MONITOR.
--- NOTE | 2018-07-28 08:05 | NUR ---
CRITICAL LAB OF 17 PLATELET. LUIS CONNOR CONTACTED AND MESSAGE LEFT @ 6657. @ 0022 SHE RETURNED THE CALL AND GAVE NO NEW ORDERS. @ BEDSIDE.
[2018-07-28 15:15] VITALS: BP 107/50
--- NOTE | 2018-07-28 15:39 | NUR ---
PT A&OX SELF, NON VERBAL. MIDLINE TO JAVAN INTACT. JEVITY AT 45/HR, NO RESIDUAL. INCONT OF BLADDER. NON AMBULATORY. NOC N[employer]ARK TOUR GUIDE NOTIFIED OF CRITICAL LAB PLT 17 THIS AM PRIOR TO SHIFT CHANGE. I CALLED DR. ARCEO OFFICE AND LEFT CRITICAL LAB RESULT WITH ANSWERING SERVICE. NO RETURN CALL, ALSO NOTIFIED . WILL CONT POC.
[2018-07-28 19:30] VITALS: BP 127/66
--- NOTE | 2018-07-29 03:58 | NUR ---
PT LYING IN BED. NO SIGNS OR SYMPTOMS OF PAIN. INCONTINENT. RESTING COMFORTABLY. NON-VERBAL. WILL CONTINUE TO PROVIDE FREQUENT OBSERVATION.
[2018-07-29 04:21] VITALS: BP 133/68
[2018-07-29 07:05] VITALS: BP 128/69
[2018-07-29 11:49] LABS: HEMOGLOBIN 9.5 gm/dL (12.0-15.0)
[2018-07-29 11:50] LABS: HEMATOCRIT 28.7 % (37.0-47.0); MCH 32.2 pg (26.0-34.0); MCHC 33.1 g/dL (28.0-37.0); MCV 97.1 fL (80.0-100.0); RBC 2.95 mil/uL (4.20-5.00); RDW 15.7 % (10.5-14.5); WBC 11.9 thou/uL (4.0-11.0)
[2018-07-29 15:14] VITALS: BP 137/51
[2018-07-29 15:45] VITALS: BP 145/61
--- NOTE | 2018-07-29 18:03 | NUR ---
PT A&OX SELF. IV INTACT IN L AC, JEVITY AT 45/HR W/O RESIDUALS. PT APPEARS MORE AWAKE TODAY. CRITICAL CALLED PLT 13. DR. ARCEO ANSWERING SERVUICE CALLED AND RECIEVED CALL BACK FROM AND ORDERED CBC IN AM THAT WAS ALREADY ORDERED. WILL CONT POC.
[2018-07-29 20:01] VITALS: BP 135/61
[2018-07-30 04:44] VITALS: BP 123/56
--- NOTE | 2018-07-30 05:03 | NUR ---
Q2HR PROVIDED. VSS. PEG TUBE FEEDING RUNNING. NO BM TONIGHT.SPOUSE BY BEDSIDE. PT OBSERVED TRACKING MY MOVTS WITH EYES, OTHERWISE REMAINS NONVERBAL.
[2018-07-30 05:55] LABS: HEMOGLOBIN 9.6 gm/dL (12.0-15.0); RBC 2.96 mil/uL (4.20-5.00)
[2018-07-30 05:57] LABS: CALCIUM 7.9 mg/dL (8.5-10.1); CREATININE 1.8 mg/dL (0.6-1.0); MAGNESIUM 2.4 mg/dL (1.8-2.4); POTASSIUM 4.7 mmol/L (3.5-5.1)
[2018-07-30 05:58] LABS: HEMATOCRIT 28.8 % (37.0-47.0); MCH 32.6 pg (26.0-34.0); MCHC 33.5 g/dL (28.0-37.0); MCV 97.3 fL (80.0-100.0); RDW 15.7 % (10.5-14.5); WBC 10.1 thou/uL (4.0-11.0)
[2018-07-30 08:54] VITALS: BP 148/63
--- NOTE | 2018-07-30 11:04 | NUR ---
ASSESMENT COMPLETED. VSS. LETHARGIC. NO APPARENT PAIN. NO NOTED SOA. NO G/J TUBE INTACT. TUBE FEEDING AT GOAL RATE PT TOLERATING WELL. WILL CONT. TO MONITOR.
[2018-07-30 12:09] LABS: HEP B SURFACE Ab(ANTI-HBS Reactive (()); HEPATITIS B SURFACE AG Negative (Negative)
[2018-07-30 16:04] VITALS: BP 136/55
[2018-07-30 20:40] VITALS: BP 131/61
[2018-07-31] VITALS (12 sets, daily range): BP systolic 115–149; BP diastolic 60–74
--- NOTE | 2018-07-31 03:59 | NUR ---
Assumed care of pt at 1900. Pt nonverbal. Q2h turn. Tube feeding Jevity 1.5 at 45mL/hr. No apparent pain. Family at bedside. Incontinent of b&b. G/J tube in place. Bath given to pt. q6h accu checks. Fall precautions in place. Will continue to monitor and assist with needs.
[2018-07-31 05:17] LABS: RDW 15.9 % (10.5-14.5)
[2018-07-31 05:18] LABS: HEMOGLOBIN 9.6 gm/dL (12.0-15.0); MCH 32.4 pg (26.0-34.0); MCHC 33.1 g/dL (28.0-37.0); MCV 97.6 fL (80.0-100.0); RBC 2.98 mil/uL (4.20-5.00); WBC 11.9 thou/uL (4.0-11.0)
--- NOTE | 2018-07-31 11:05 | NUR ---
Recommend increase water flushes to 200ml every 6 hrs with increasing bun and elevated chloride labs
--- NOTE | 2018-07-31 11:09 | NUR ---
Recommend increase water flushes to 200 every 4 hrs due to increased Cl and BUN is increasing
--- NOTE | 2018-07-31 17:30 | NUR ---
Assessment completed.vss.Pt in bed sleeping on and off.Turned and repositioned q2h for comfort.Dr Westbrook and Zulema here,order noted.Infusion nurse from outpt clinic adminstered rituxan iv later this afternoon.Tube feeding in progress with water flushes as ordered.Will continue to monitor.
--- NOTE | 2018-07-31 18:17 | NUR ---
RITUXAN GIVEN PER PROTOCOL WITH MAX RATE OF 175ML/HR AND TOLERATED WELL WITH NO REACTION NOTED. UNABLE TO GET BLOOD RETURN HOWEVER FLUSHED EASILY. SITE WNL. PATIENT NON RESPONSIVE AND SLEPT THROUGHOUT INFUSION. VITAL SIGNS REMAINED STABLE.
--- NOTE | 2018-08-01 03:46 | NUR ---
Assumed care of pt at 1900. Pt nonverbal. In no apparent distress. J tube clogged. FIELD APPLICATION ENGINEER on duty notified. Attempted to unclogg J-tube with ordered medication. Attempt unsucessul. FIELD APPLICATION ENGINEER on duty notified and instructed to continue tube feeding through G tube. Q2h turn. Incontinent of b&b. IR consult order. Fall precautions in place. Family at bedside. Will continue to monitor.
[2018-08-01 05:24] LABS: RBC 2.97 mil/uL (4.20-5.00)
[2018-08-01 05:26] VITALS: BP 110/57
[2018-08-01 05:26] LABS: HEMATOCRIT 29.3 % (37.0-47.0); HEMOGLOBIN 9.7 gm/dL (12.0-15.0); MCH 32.5 pg (26.0-34.0); MCV 98.5 fL (80.0-100.0); RDW 16.5 % (10.5-14.5); WBC 11.1 thou/uL (4.0-11.0)
--- NOTE | 2018-08-01 10:22 | NUR ---
Assumed pt care at 7am.Pt in bed alert and oriented but non verbal.Assessment completed.vss.Consent for [employer] exchange signed by spouse.DR adams here,order noted.biostatistics manager informed about it and was told it will be done. At 10am,pt left for radiology per bed accompanied by spouse and 2 student nurse.Will continue to monitor.
--- NOTE | 2018-08-01 14:48 | NUR ---
PT. DISCHARGING TODAY TO [facility] FAXED DC ORDERSS/SUMMARY TO FACILITY SPOKE WITH LI IN ADM SHE RECEIVED DC ORDERS. ARRANGED TRANSPORTATION VIA AMBULANCE FOR 1500 TODAY. NOTIFIED PT'S (NADINE) OF DC AND TIME OF TRANSPORT. UNIT NOTIFIED AND CHART COPY PER US. RN TO CALL REPORT TO [phone].
== END 2018-08-01 15:56 | DRG 813 ==
LOC: 4E 12:37
PROVIDERS: Internal Medicine Hematology & Oncology; ADMIT Internal Medicine
PROC: 0D2DXUZ Change Feeding Device in Lower Intestinal Tract, External Approach (ICD-10-PCS; principal; 2018-08-01)
DX: D69.3 Immune thrombocytopenic purpura (principal); I34.0 Nonrheumatic mitral (valve) insufficiency; I12.9 Hypertensive chronic kidney disease with stage 1 through stage 4 chronic kidney disease, or unspecified chronic kidney disease; E11.22 Type 2 diabetes mellitus with diabetic chronic kidney disease; N18.3 Chronic kidney disease, stage 3 (moderate); F32.9 Major depressive disorder, single episode, unspecified; E03.9 Hypothyroidism, unspecified; E78.5 Hyperlipidemia, unspecified; F03.90 Unspecified dementia, unspecified severity, without behavioral disturbance, psychotic disturbance, mood disturbance, and anxiety; Z66 Do not resuscitate; Z86.73 Personal history of transient ischemic attack (TIA), and cerebral infarction without residual deficits; Z88.6 Allergy status to analgesic agent; Z88.1 Allergy status to other antibiotic agents; Z88.0 Allergy status to penicillin; Z88.8 Allergy status to other drugs, medicaments and biological substances; Z23 Encounter for immunization
CPT/HCPCS: 10783; 27000

== ENCOUNTER 2018-08-07 11:23 | Observation (INO) | payer OTHER ==
[~2018-08-07] VITALS: Ht 162.6 cm; Wt 72.6 kg
--- NOTE | ~2018-08-07 | HC ---
[facility] [place] [address] CONSULTATION Name: KALIA LIRA Room #: 419-P [facility].#: [id number] Admission: 08/07/18 ������������������ Attend Phys: Rasta Hunt MD Discharge: 08/08/18 ������������������ Date of : 51 Report #: [id number] THIS REPORT FOR: //name// CC: Sarwat Xiong MD [facility] Rsata Patel Sofía Batista MD REQUESTING PHYSICIAN: Alvin Batista MD. REASON FOR CONSULTATION: Acute on chronic ITP. HISTORY OF PRESENT ILLNESS: This is a followup. The patient had a history of what seems like acute on chronic ITP, was recently in the hospital because of relapse after single agent dexamethasone. Last time, she was treated with IVIG and steroids. She received her first dose of Rituxan about a week ago. She was yesterday for second dose Rituxan. Her platelets when she had left about a week ago had been 15,000; yesterday, they were 30,000. Her reports no difficulties after Rituxan except for maybe some slight fatigue and sleeping for a day or two. No bruising, no bleeding. Really, no clinical change. PAST MEDICAL HISTORY: Notable for what appears to be acute on chronic ITP with platelets had been in the 60-70,000 range for maybe about the last year and a half. She also has history of chronic renal insufficiency, dementia, cognitive impairment related to ischemic strokes, also history of hypertension, diabetes, and hyperlipidemia. Has chronic tube feeding. Also, crutkryt-sv-tfgvkx mitral regurg on an echo from 06/2018 with an EF of 50%-55%. Hypothyroid and mood disorder. SOCIAL HISTORY: Nonsmoker, nondrinker, has been her Larry for about 44 years. MEDICATIONS: At this time in the hospital currently include docusate 1 tab daily, levothyroxine 112 mcg daily, fluoxetine 40 daily, omeprazole 40 daily, MiraLax 17 grams b.i.d., levetiracetam 500 b.i.d., trazodone 25 at bedtime, budesonide 0.5 mg respiratory therapy b.i.d., guaifenesin 400 q.4h. per tube, nystatin apply to affected areas daily, Tylenol p.r.n., insulin on a sliding scale, received rituximab 700 mg yesterday. PHYSICAL EXAMINATION: VITAL SIGNS: Height is about 5 feet 4 inches, 162.6 cm, weight 160 pounds or 72.6 kilograms. Blood pressure recently 122/47, O2 sat 100%, respirations 18, pulse 79, temperature 97.8 in the axilla. MOOD: Cannot assess. NEUROLOGIC: The patient will open her eyes, mostly has a right gaze. Does not really interact that well, awaken with voice or touch, but does not appear to [address] [place] [address] CONSULTATION Name: KALIA LIRA Room #: 419-P [facility] Jada MCaioRCaio#: [id number] Admission: 08/07/18 ������������������ Attend Phys: Rasta Hunt MD Discharge: 08/08/18 ������������������ Date of : 51 Report #: [id number] track and not interact will not open mouth. HEENT: Face appears mostly symmetrical. LUNGS: Appear to be clear without any significant rhonchi, rales or wheezes. HEART: Regular rate. No enlarged lymph nodes in the supraclavicular, cervical, axillary or inguinal region. ABDOMEN: Obese. No organomegaly. Has a G-J feeding tube in the upper mid to/left quadrant. EXTREMITIES: Have trace edema. No unusual ecchymosis or bruising other than from venipuncture and IV sites. ALLERGIES: REPORTEDLY HAS HAD TROUBLE WITH OXYCODONE, MOXIFLOXACIN, PENICILLINS, OXYCODONE, TUBERCULIN PPD AND AMOXICILLIN, UNCLEAR WHAT THE DIFFICULTIES WERE. ASSESSMENT AND PLAN: 1. Ceubi-ce-qgtykvz idiopathic thrombocytopenic purpura status post now second cycle of rituximab with platelets that had been 15, now 30, no signs of bleeding. We will like to next week and then a week after that, then follow. We will probably not be more aggressive in terms of splenectomy, but could discuss in the future. Continue monitoring for bleeding and platelet count. 2. Ischemic cerebrovascular accident, no specific therapies. 3. Chronic kidney disease. Monitor renal function. 4. Diabetes type 2. Defer to others, but monitor diet and sliding scale insulin. 5. Hypertension, meds per others. 6. Hypothyroid, replaced. 7. Lipids, per others. 8. Nutrition, receives tube feeding. 9. The patient had some seizure activity about 4-5 years ago. The patient had her first stroke about 12 years ago, did not have insurance and has had a gradual decline since that time. 10. Prophylaxis, has been receiving levetiracetam and also pantoprazole. ��������������������������������������������� ���������������������������������������� By: ��������������������������������������������� 0831 25 Attila Rubio MD /nt
[2018-08-07 13:36] LABS: HEMOGLOBIN 9.7 gm/dL (12.0-15.0)
[2018-08-07 13:37] LABS: ABSOLUTE NEUTROPHILS 7.4 thou/uL (1.4-8.2); BASOPHILS 0.5 % (0.0-2.0); EOSINOPHILS 2.5 % (0.0-3.0); HEMATOCRIT 29.2 % (37.0-47.0); LYMPHOCYTES 11.5 % (24.0-44.0); MCH 32.9 pg (26.0-34.0); MCHC 33.2 g/dL (28.0-37.0); MONOCYTES 6.5 % (1.0-8.0); RBC 2.95 mil/uL (4.20-5.00); WBC 9.4 thou/uL (4.0-11.0)
[2018-08-07 13:48] LABS: ALBUMIN 2.7 g/dL (3.4-5.0); CALCIUM 9.1 mg/dL (8.5-10.1); CREATININE 1.4 mg/dL (0.6-1.0); MAGNESIUM 2.3 mg/dL (1.8-2.4); POTASSIUM 4.3 mmol/L (3.5-5.1); TOTAL BILIRUBIN 0.4 mg/dL (<0.1-1.0); TOTAL PROTEIN 7.5 g/dL (6.4-8.2)
[2018-08-07 14:17] LABS: PLATELET COUNT 30 thou/uL (150-400)
[2018-08-07 14:18] LABS: ANISOCYTOSIS 2+; POLYCHROMASIA OCCASIONAL
[2018-08-07 16:00] VITALS: BP 137/73
[2018-08-07 16:45] VITALS: BP 152/57
[2018-08-07 17:15] VITALS: BP 154/49
[2018-08-07 17:45] VITALS: BP 120/58
[2018-08-07 19:57] VITALS: BP 116/62
[2018-08-08 03:13] VITALS: BP 118/57
[2018-08-08 07:16] VITALS: BP 122/47
[2018-08-08 09:19] LABS: HEMOGLOBIN 8.3 gm/dL (12.0-15.0); RBC 2.52 mil/uL (4.20-5.00)
[2018-08-08 09:20] LABS: MCH 32.9 pg (26.0-34.0)
[2018-08-08 09:22] LABS: HEMATOCRIT 25.1 % (37.0-47.0); MCV 99.4 fL (80.0-100.0); RDW 18.8 % (10.5-14.5); WBC 6.3 thou/uL (4.0-11.0)
[2018-08-08 09:25] LABS: CALCIUM 8.4 mg/dL (8.5-10.1); CREATININE 1.4 mg/dL (0.6-1.0); MAGNESIUM 2.1 mg/dL (1.8-2.4); POTASSIUM 3.9 mmol/L (3.5-5.1)
== END 2018-08-08 12:04 ==
LOC: 4E 11:23
PROVIDERS: Internal Medicine; Nurse Practitioner; ADMIT Hospitalist
DX: D69.3 Immune thrombocytopenic purpura (principal); E11.22 Type 2 diabetes mellitus with diabetic chronic kidney disease; I12.9 Hypertensive chronic kidney disease with stage 1 through stage 4 chronic kidney disease, or unspecified chronic kidney disease; N18.9 Chronic kidney disease, unspecified; E03.9 Hypothyroidism, unspecified; R13.10 Dysphagia, unspecified; E78.5 Hyperlipidemia, unspecified; Z79.899 Other long term (current) drug therapy; Z86.73 Personal history of transient ischemic attack (TIA), and cerebral infarction without residual deficits

== ENCOUNTER 2018-08-14 10:28 | Observation (INO) | payer OTHER ==
[2018-08-14] VITALS (8 sets, daily range): BP systolic 11–144; BP diastolic 52–76
[~2018-08-14] VITALS: Ht 162.6 cm; Wt 72.6 kg
[2018-08-14] MEDS ORDERED: FLUSH FLUSH (11:26)
[2018-08-14 12:28] LABS: ABSOLUTE NEUTROPHILS 4.8 thou/uL (1.4-8.2); BASOPHILS 0.5 % (0.0-2.0); EOSINOPHILS 1.2 % (0.0-3.0); HEMOGLOBIN 8.7 gm/dL (12.0-15.0); MCH 32.4 pg (26.0-34.0); MCHC 32.5 g/dL (28.0-37.0); POLYS 77.7 % (36.0-66.0)
[2018-08-14 12:30] LABS: HEMATOCRIT 26.7 % (37.0-47.0); LYMPHOCYTES 11.6 % (24.0-44.0); MCV 99.6 fL (80.0-100.0); RBC 2.68 mil/uL (4.20-5.00); RDW 18.6 % (10.5-14.5); WBC 6.2 thou/uL (4.0-11.0)
[2018-08-14 13:02] LABS: PLATELET COUNT 34 thou/uL (150-400)
[2018-08-14 13:03] LABS: ANISOCYTOSIS 1+; LARGE PLATELETS SEVERAL; PLATELET ESTIMATE MARKEDLY DECREASED
--- NOTE | 2018-08-14 14:24 | NUR ---
CAME TO THE UNIT TO ADMINISTER RITUXAN TODAY. PT'S NURSE, ANKUR, ADMINISTERED PREMEDS AT 1300. VSS UPON ARRIVAL. HAD TO GO TO WORK BUT ANKUR STATES HE IS WELL AWARE OF PLAN AND SUPPORTIVE OF RITUXAN. VERIFIED PT'S IDENTITY WITH ANKUR AND PER ARM BAND PT IS NON-VERBAL. RITUXAN VERIFIED WITH MICHELE DUCKWORTH, PRIOR TO START. RITUXAN STARTED AT 1349 PER PATENT JAVAN MIDLINE. FLUSHES EASILY BUT NO BLOOD RETURN (NONE EXPECTED FROM MIDLINE). VSS CHECK DONE JUST A FEW MINUTES INTO INFUSION WITH TEMP NOTED TO BE 100.6 (AFEBRILE ON ARRIVAL). NOTIFIED DR. ARCEO WITH ORDER RECEIVED TO GIVE ADVIL AND SOLUMEDROL. ORDER SENT TO PHARMACY. RITUXAN STARTED AT 100MG/H FOR 1ST 30 MIN HAS HAD NO ADVERSE REACTIONS IN THE PAST. INFUSION KEPT AT SAME RATE FOR THIS NEXT 30MIN UNTIL FURTHER MEDS GIVEN TO TREAT FEVER. NOTE, FEVER IS NOT DUE TO RITUXAN NOTED ONLY 2 MINUTES INTO INFUSION TIME.
--- NOTE | 2018-08-14 14:56 | NUR ---
JOSE RN WITH DR. ARCEO CALLED NURSE TO STATE THAT DR. ARCEO IS OK TO CONTINUE RITUXAN AND TO PROCEED WITH ADVIL AND SOLUMEDROL ORDERED. ALSO WANTS HOSPITALIST NOTIFIED OF ELEVATED TEMP. PATRICE PASCUAL, REACHING OUT TO HOSPITALIST. I GAVE BOTH IBUPROFEN AND SOLUMEDROL. RITUXAN RATE INCREASED TO 200MG/H.
--- NOTE | 2018-08-14 16:26 | NUR ---
ON LAST OF RITUXAN INFUSION. TOLERATED WITHOUT INCIDENT, NO S/S REACTION. TITRATED UP 100MG Q 3O MIN AFTER THAT FIRST HOUR TO MAX OF 400MG/H. COMPLETED IN ABOUT 2H 45 MINUTES. TEMP DRIFTED DOWN AFTER IBUPROFEN TO 98.6 AXILLARY. PT'S NURSE, ANKUR, CONTACTED HOSPITALIST ABOUT ELEVATED TEMP. NO RETURN ORDERS YET. PT AWAKE THE ENTIRE INFUSION. REMAINS NONVERBAL. REPOSITIONED TO LEFT SIDE, HOB KEPT ELEVATED. VSS THROUGHOUT. STAFF INSTRUCTED ON 48H POST TREATMENT [employer] AND CHEMO CART IS OUTSIDE OF ROOM WITH SIGNAGE ON DOOR. PT IS TO HAVE ONE FINAL RITUXAN INFUSION IN ONE WEEK.
--- NOTE | 2018-08-14 19:24 | NUR ---
PT ARRIVED FROM [facility] THIS MORNING FOR INFUSION. ORDERS IMPLEMETED. PT TOLERATED CHEMO INFUSION WELL. TUBE FEEDING STARTED. PT RESTING COMFORTABLY.
[2018-08-15 00:46] VITALS: BP 91/54
[2018-08-15 01:44] LABS: URINE BILIRUBIN NEGATIVE (Negative); URINE BLOOD TRACE (Negative); URINE CLARITY SL CLOUDY; URINE COLOR YELLOW; URINE GLUCOSE-RANDOM* NEGATIVE (Negative); URINE KETONES NEGATIVE (Negative); URINE LEUKOCYTES 3+ (Negative); URINE NITRITE POSITIVE (Negative); URINE PROTEIN (DIPSTICK) NEGATIVE (Negative); URINE UROBILINOGEN 0.2 E.U./dl (0.2-1.0)
[2018-08-15 01:54] LABS: SQUAMOUS 0-3 Few /LPF (0-3); URINE RBC 0-2 Rare /HPF (0-2); WBC CLUMPS Moderate (None Seen)
[2018-08-15 01:55] LABS: BACTERIA >30 Many /HPF (None Seen); CASTS None Seen /LPF (None Seen); CRYSTALS None Seen /LPF (None Seen); MUCUS 0-3 Light strn/LPF (None Seen)
[2018-08-15 06:09] LABS: HEMOGLOBIN 8.5 gm/dL (12.0-15.0)
[2018-08-15 06:10] VITALS: BP 124/60
[2018-08-15 06:13] LABS: ABSOLUTE NEUTROPHILS 3.9 thou/uL (1.4-8.2); BASOPHILS 0.2 % (0.0-2.0); HEMATOCRIT 25.2 % (37.0-47.0); LYMPHOCYTES 10.8 % (24.0-44.0); MCH 33.2 pg (26.0-34.0); MCHC 33.9 g/dL (28.0-37.0); MONOCYTES 2.8 % (1.0-8.0); PLATELET COUNT 33 thou/uL (150-400); POLYS 86.2 % (36.0-66.0); RBC 2.57 mil/uL (4.20-5.00); RDW 17.8 % (10.5-14.5); WBC 4.5 thou/uL (4.0-11.0)
[2018-08-15 06:21] LABS: CALCIUM 8.9 mg/dL (8.5-10.1); CREATININE 1.4 mg/dL (0.6-1.0); POTASSIUM 4.3 mmol/L (3.5-5.1)
[2018-08-15 07:46] VITALS: BP 116/56
--- NOTE | 2018-08-15 08:01 | NUR ---
progress pt awake and alert follows you with eyes. non verbal and only able to move right side slightly. skin c/d/i incontinent of urine and had a large liquid brown stool and passed a lot of flatus. tube feeding jevity 1.5 infusing at 35cc/hr hob at 35 degrees. straight cathed for urine specimen urine yellow and cloudy sent to lab per order. repositioned q2hrs . midline to darlyn began to leak at inseertion site dressing changed and continues to leak, saline locked and consult placed for iv therapy to assess. continue poc.
--- NOTE | 2018-08-15 08:40 | NUR ---
PT ADMITTED RELATED TO ITP AND TO RECIEVE RITAXIN INFUSION. PLAN IS FOR PT TO [place] [facility] [place]. CM ARRANGED [facility] TRANSPORT THROUGH [facility] TRIP #[id number] [employer] [employer] BY 9:30. CM ATTEMPTED PC TO PT'S SPOUSE BUT VOICEMAIL WAS FULL. CM TO NOTIFY HIM IN PERSON. CHART COPY ORDERED. ORDERES TO BE FAXED. REPORT TO BE CALLED TO .
--- NOTE | 2018-08-15 10:15 | NUR ---
PT VS STABLE THIS MORNING. PT DISCHARGED BACK TO [facility]. REPORT CALLED TO MS. WHATLEY. PT LEFT VIA [facility]. SPOUSE AT BEDSIDE.
== END 2018-08-15 09:59 ==
LOC: SPEC 10:28 → 4W 10:29 → SPEC 10:53 → 4W 08-15 09:59
PROVIDERS: Internal Medicine; Nurse Practitioner; ADMIT Internal Medicine Hematology & Oncology
DX: D69.6 Thrombocytopenia, unspecified (principal); R47.01 Aphasia; R13.10 Dysphagia, unspecified; E03.9 Hypothyroidism, unspecified; F32.9 Major depressive disorder, single episode, unspecified; F03.90 Unspecified dementia, unspecified severity, without behavioral disturbance, psychotic disturbance, mood disturbance, and anxiety; E78.5 Hyperlipidemia, unspecified; I12.9 Hypertensive chronic kidney disease with stage 1 through stage 4 chronic kidney disease, or unspecified chronic kidney disease; E11.22 Type 2 diabetes mellitus with diabetic chronic kidney disease; N18.3 Chronic kidney disease, stage 3 (moderate); Z86.73 Personal history of transient ischemic attack (TIA), and cerebral infarction without residual deficits; Z88.0 Allergy status to penicillin; Z88.1 Allergy status to other antibiotic agents; Z88.8 Allergy status to other drugs, medicaments and biological substances; Z79.899 Other long term (current) drug therapy

== ENCOUNTER 2018-08-21 11:34 | Observation (INO) | payer OTHER ==
[~2018-08-21] VITALS: Ht 162.6 cm; Wt 72.5 kg
[~2018-08-21 11:34] MED LIST changes: +FLUSH FLUSH
[2018-08-21 12:22] LABS: ABSOLUTE NEUTROPHILS 4.7 thou/uL (1.4-8.2); BASOPHILS 0.7 % (0.0-2.0); HEMATOCRIT 29.1 % (37.0-47.0)
[2018-08-21 12:24] LABS: EOSINOPHILS 3.9 % (0.0-3.0); HEMOGLOBIN 9.6 gm/dL (12.0-15.0); LYMPHOCYTES 14.5 % (24.0-44.0); MCH 31.9 pg (26.0-34.0); MCHC 32.9 g/dL (28.0-37.0); MCV 96.9 fL (80.0-100.0); MONOCYTES 10.8 % (1.0-8.0); POLYS 70.1 % (36.0-66.0); WBC 6.7 thou/uL (4.0-11.0)
[2018-08-21 12:35] LABS: CALCIUM 8.8 mg/dL (8.5-10.1); CREATININE 1.2 mg/dL (0.6-1.0); POTASSIUM 4.3 mmol/L (3.5-5.1)
[2018-08-21 12:41] LABS: TOTAL BILIRUBIN 0.4 mg/dL (<0.1-1.0); TOTAL PROTEIN 6.9 g/dL (6.4-8.2)
[2018-08-21 13:00] VITALS: BP 144/73
[2018-08-21 13:08] LABS: PLATELET COUNT 47 thou/uL (150-400); PLATELET ESTIMATE DECREASED
[2018-08-21 13:09] LABS: ANISOCYTOSIS 1+; LARGE PLATELETS FEW
[2018-08-21 16:08] VITALS: BP 120/61
--- NOTE | 2018-08-21 16:56 | NUR ---
PT ADMITTED TO RECIEVE HER LAST RITUXAN INFUSION. PLAN IS FOR PT TO RETURN TO [facility] TOMORROW. CM TO ARRANGE TRANSPORT THROUGH [facility].
--- NOTE | 2018-08-21 17:19 | NUR ---
RITUXAN GIVEN PER PROTOCOL WITH MAX RATE OF 200 ML/HR AND TOLERATED WELL. VITAL SIGNS STABLE.
--- NOTE | 2018-08-21 17:55 | NUR ---
PT ARRIVED ON UNIT AT APPROX. 11:[address] [facility] FOR INFUSION THERAPY. ADMISSION HX, ASSESSMENT AND EDUCATION COMPLETE. ORDERS IMPLEMENTED. PT RECIEVED THERAPY, WILL DC TOMORROW BACK TO FACILITY. TUBE FEEDING RESTARTED. PT RESTING COMFORTABLY.
[2018-08-21 19:07] VITALS: BP 127/67
--- NOTE | 2018-08-22 02:20 | NUR ---
ASSUMED CARE AT FROM DAY SHIFT PT EYES OPEN AND WILL FOLLOW BUT NON VERBAL, PT IS A TURN EVERY 2 HOURS FEMALE EXTERNAL CATHETER PLACED , SKIN INTACT. TOLERATING TUBE FEEDING AND MEDICATION. AT BEDSIDE. WILL CONINTUE WITH CURRENT PLAN OF CARE AND WILL REPORT CHANGES.
[2018-08-22 03:53] VITALS: BP 110/45
[2018-08-22 06:03] LABS: MCH 32.2 pg (26.0-34.0); MCHC 33.2 g/dL (28.0-37.0); RBC 2.79 mil/uL (4.20-5.00); RDW 18.1 % (10.5-14.5); WBC 6.1 thou/uL (4.0-11.0)
[2018-08-22 06:21] LABS: CALCIUM 8.8 mg/dL (8.5-10.1); CREATININE 1.3 mg/dL (0.6-1.0); MAGNESIUM 2.1 mg/dL (1.8-2.4); POTASSIUM 3.6 mmol/L (3.5-5.1)
[2018-08-22 07:04] VITALS: BP 104/52
[2018-08-22 07:36] LABS: ABSOLUTE NEUTROPHILS 4.3 thou/uL (1.4-8.2)
[2018-08-22 07:37] LABS: ANISOCYTOSIS 2+; PLATELET COUNT 52 thou/uL (150-400); POLYCHROMASIA OCCASIONAL
[2018-08-22 07:43] LABS: LARGE PLATELETS FEW
[2018-08-22 07:45] LABS: PLATELET ESTIMATE 60
--- NOTE | 2018-08-22 08:42 | NUR ---
CM ARRANGED [facility] STRETCHER TRANSPORT TRIP #[id number]. PT TO BE PICKED UP BETWEEN 8:40-11:40. CM NOTIFIED NURSE. SPOUSE IS AWARE AND AGREEABLE WITH PT'S RETURN TO [facility]. ORDERS TO BE FAXED AND CHART COPY MADE. REPORT TO BE CALLED TO .
--- NOTE | 2018-08-22 11:51 | NUR ---
Received awake on bed. Due medications given as prescribed thru PEG tube. With PEG tube in situ- patent and intact, dressing clean and dry, medications and flushes every 4 hours given, Jevity infusing at 35ml/hr. With external catheter in situ. On room air. Patient turned every 2 hours. With midline in situ. On blood sugar monitoring, taken and recorded. Falls bundle in place. Patient's at the bedside. Pt to go back to [facility] before 10:30am as handed over by night staff. As per Legal Administrative Secretary, transport booked between 9:00-10:30am. Chart copy sent by intensive care unit nurse. Discharge instruction included in chart copy, informed re: follow up schedule and medications to continue. Transport came in to fetch patient, requested pharmacy for Keppra medication, none available at bedside, due this AM. Medication given prior to patient's transfer. Pt with midline, verified with Dr. Poole if ok to remove- if patient had her final chemotherapy, ok to remove. Read patient's notes, no IV home medications and had her final chemotherapy yesterday. Verified with IV nurse, I can remove Midline. Midline removed aseptically, pressure applied. Gauze applied, no bleeding or discharge on dressing after removal and prior to transport. Report given to Ne [facility]. Pt's discharge instructions, personal belongings sent together with patient. Reported that re: pt's follow up schedule, to continue tube feeding and chemptherapy completed.
== END 2018-08-22 10:20 ==
LOC: 4W 11:34 → OBSERV 13:19 → 4W 08-22 10:20
PROVIDERS: Nurse Practitioner; ADMIT Internal Medicine Hematology & Oncology
DX: D69.6 Thrombocytopenia, unspecified (principal); I63.9 Cerebral infarction, unspecified; E11.9 Type 2 diabetes mellitus without complications; R13.10 Dysphagia, unspecified; I12.9 Hypertensive chronic kidney disease with stage 1 through stage 4 chronic kidney disease, or unspecified chronic kidney disease; E11.22 Type 2 diabetes mellitus with diabetic chronic kidney disease; N18.3 Chronic kidney disease, stage 3 (moderate); E03.9 Hypothyroidism, unspecified; F03.90 Unspecified dementia, unspecified severity, without behavioral disturbance, psychotic disturbance, mood disturbance, and anxiety; F32.9 Major depressive disorder, single episode, unspecified; E78.5 Hyperlipidemia, unspecified; Z88.0 Allergy status to penicillin; Z88.1 Allergy status to other antibiotic agents; Z88.8 Allergy status to other drugs, medicaments and biological substances; Z79.899 Other long term (current) drug therapy

== ENCOUNTER 2018-10-01 12:32 | Inpatient (IN) | payer OTHER ==
[~2018-10-01] VITALS: Ht 152.4 cm; Wt 83.2 kg
[2018-10-01 12:32] VITALS: BP 113/64
[2018-10-01 12:52] LABS: MCH 27.4 pg (26.0-34.0)
[2018-10-01 12:54] LABS: ABSOLUTE NEUTROPHILS 6.5 thou/uL (1.4-8.2); BASOPHILS 0.6 % (0.0-2.0); EOSINOPHILS 5.8 % (0.0-3.0); HEMATOCRIT 26.2 % (37.0-47.0); HEMOGLOBIN 8.4 gm/dL (12.0-15.0); LYMPHOCYTES 13.3 % (24.0-44.0); MCHC 32.1 g/dL (28.0-37.0); MCV 85.3 fL (80.0-100.0); MONOCYTES 7.9 % (1.0-8.0); POLYS 72.4 % (36.0-66.0); RBC 3.07 mil/uL (4.20-5.00); RDW 19.4 % (10.5-14.5)
[2018-10-01 13:04] LABS: ANION GAP 8 mmol/L (7-16); BUN 23 mg/dL (7-18); CALCIUM 8.8 mg/dL (8.5-10.1); CHLORIDE 104 mmol/L (98-107); CO2 26 mmol/L (21-32); CREATININE 1.3 mg/dL (0.6-1.0); GLUCOSE 118 mg/dL (74-106); POTASSIUM 4.4 mmol/L (3.5-5.1); SODIUM 138 mmol/L (136-145)
[2018-10-01 13:14] LABS: ALBUMIN 2.6 g/dL (3.4-5.0); SGOT 32 U/L (15-37); SGPT 19 U/L (30-65); TOTAL BILIRUBIN 0.3 mg/dL (<0.1-1.0); TOTAL PROTEIN 7.6 g/dL (6.4-8.2); TROPONIN-I <0.06 ng/mL (<0.06)
[2018-10-01 13:49] LABS: URINE CLARITY CLOUDY; URINE COLOR YELLOW; URINE PROTEIN (DIPSTICK) 2+ (Negative); URINE SPECIFIC GRAVITY 1.015 (1.005-1.035)
[2018-10-01 13:50] LABS: URINE BILIRUBIN NEGATIVE (Negative); URINE BLOOD 2+ (Negative); URINE GLUCOSE-RANDOM* NEGATIVE (Negative); URINE KETONES NEGATIVE (Negative); URINE LEUKOCYTES 3+ (Negative); URINE NITRITE NEGATIVE (Negative); URINE UROBILINOGEN 0.2 E.U./dl (0.2-1.0)
[2018-10-01 13:51] LABS: URINE WBC >25 Many /HPF (0-5)
[2018-10-01 13:52] LABS: AMORPHOUS URATES Moderate /LPF (None Seen); BACTERIA >30 Many /HPF (None Seen); CASTS None Seen /LPF (None Seen); SQUAMOUS None Seen /LPF (0-3); URINE RBC None Seen /HPF (0-2)
[2018-10-01 13:55] LABS: ANISOCYTOSIS 2+; LARGE PLATELETS OCCASIONAL; PLATELET COUNT 48 thou/uL (150-400); POLYCHROMASIA OCCASIONAL
[2018-10-01 14:00] VITALS: BP 135/57
[2018-10-01 16:00] VITALS: BP 122/70
[2018-10-01 17:35] VITALS: BP 129/65
--- NOTE | 2018-10-01 19:58 | NUR ---
PT TRANSFERRED TO [facility] EMERGENCY ROOM AND UNDER CARE OF XIOMARA IBRAHIM AT 1500
[2018-10-01 20:00] VITALS: BP 129/65
[2018-10-01 20:31] VITALS: BP 127/58
[2018-10-02] VITALS (8 sets, daily range): BP systolic 112–140; BP diastolic 6–92
--- NOTE | 2018-10-02 03:33 | NUR ---
PT ADMITED FROM ED AROUND 2029. BROUGHT FROM [facility] WAS IN ER FOR SOA X1 WEEK, R PLEURAL EFFUSSION. ASSESSMENT CHARTED. VSS. PT IS NON VERBAL PAST CVA, SEE HISTORY. LEFT SIDE FLACCID. TOTAL CARE. G/J TUBE IN PLACE, MEDS CRUSHED WATER FLUSH. INCONTINET. STOPPED BY FOR A MOMENT AFTER WORK STATED HE WILL BE BACK IN MORNING AND HE CAN SIGN ANY UNSIGNED PAPER WORK. CONSULT FOR THORACENTESIS. WILL CONTINUE TO MONITOR AND WITH POC.
[2018-10-02 03:54] LABS: ABSOLUTE NEUTROPHILS 7.4 thou/uL (1.4-8.2); BASOPHILS 0.8 % (0.0-2.0); EOSINOPHILS 0.1 % (0.0-3.0); HEMATOCRIT 26.2 % (37.0-47.0); HEMOGLOBIN 8.4 gm/dL (12.0-15.0); LYMPHOCYTES 2.5 % (24.0-44.0); MCH 27.3 pg (26.0-34.0); MCV 85.3 fL (80.0-100.0); MONOCYTES 0.5 % (1.0-8.0); PLATELET COUNT 39 thou/uL (150-400); POLYS 96.1 % (36.0-66.0); RBC 3.07 mil/uL (4.20-5.00); RDW 19.2 % (10.5-14.5); WBC 7.7 thou/uL (4.0-11.0)
[2018-10-02 03:58] LABS: CREATININE 1.4 mg/dL (0.6-1.0); MAGNESIUM 2.2 mg/dL (1.8-2.4); POTASSIUM 4.3 mmol/L (3.5-5.1)
[2018-10-02 07:29] LABS: PROTIME 10.4 Seconds (9.3-11.4)
--- NOTE | 2018-10-02 09:35 | NUR ---
Recommend jevity 1.5 at 50ml/hr. Once ivf are discontinued rec water flush of 200ml every 6 hr
[2018-10-02 10:11] LABS: BASOPHILS 0.2 % (0.0-2.0); HEMATOCRIT 25.7 % (37.0-47.0); MONOCYTES 0.3 % (1.0-8.0)
[2018-10-02 10:13] LABS: ABSOLUTE NEUTROPHILS 6.3 thou/uL (1.4-8.2); HEMOGLOBIN 8.1 gm/dL (12.0-15.0); LYMPHOCYTES 4.5 % (24.0-44.0); MCH 27.1 pg (26.0-34.0); MCHC 31.7 g/dL (28.0-37.0); MCV 85.5 fL (80.0-100.0); RDW 19.5 % (10.5-14.5); WBC 6.7 thou/uL (4.0-11.0)
[2018-10-02 10:41] LABS: ANISOCYTOSIS 2+; PLATELET COUNT 38 thou/uL (150-400)
[2018-10-02 10:42] LABS: POLYCHROMASIA OCCASIONAL
[2018-10-02 16:02] LABS: HEMATOCRIT 24.9 % (37.0-47.0); HEMOGLOBIN 7.8 gm/dL (12.0-15.0); MCH 26.9 pg (26.0-34.0); MCHC 31.4 g/dL (28.0-37.0); MCV 85.9 fL (80.0-100.0); RBC 2.9 mil/uL (4.20-5.00); RDW 18.8 % (10.5-14.5); WBC 8.1 thou/uL (4.0-11.0)
--- NOTE | 2018-10-02 16:33 | NUR ---
ASSESSMENT CHARTED - MEDS MAR - ALL PO/PEG TUBE MEDS HELD DUE TO PATIENT HAVING A THORACENTISIS THIS AFTERNOON - PT WITH PLT COUNT OF 39 THIS AM - PT RECIEVED 1 UNIT OF PLTS WITH A RESULT OF 97 SO PROCEDURE ABLE TO BE COMPLETED. SEEN BY SALES TEAM RECRUITER ORDERED THIS AM - PATIENT HAS BEEN SLEEPING / NOT RESPONDING FOR MOST OF THE DAY - DID GET SOME REACTION FROM PATIENT WHEN MOUTH CARE WAS DONE - DID NOT APPEAR TO LIKE HAVING THIS COMPLETED. HSUBAND AT THE BEDSIDE FOR MOST OF THE DAY.
[2018-10-02 17:22] LABS: CLARITY SLIGHTLY CLOUDY; COLOR YELLOW; SOURCE THORA; TOTAL VOLUME 60 mL
[2018-10-02 17:23] LABS: SOURCE THORA
[2018-10-02 17:24] LABS: SOURCE THORA
[2018-10-02 17:37] LABS: BF NUCLEATED CELLS 210; BF RBC 878
[2018-10-02 18:10] LABS: BF MACROPHAGE 17; BF NEUTROPHILS 29
[2018-10-03 03:55] VITALS: BP 96/51
--- NOTE | 2018-10-03 04:11 | NUR ---
ASSESSMENT CHARTED. VSS. PT NONVERBAL. AT BEDSIDE AFTER WORK AT 0100. MEDS PER G/J TUBE. Q2 TURNS. MOUTH CARE. NO DISTRESS. 2 L NC WHEEZY/DIM. WILL CONTINUE TO MONITOR AND WITH POC.
[2018-10-03 04:21] LABS: CALCIUM 8.6 mg/dL (8.5-10.1); CREATININE 1.2 mg/dL (0.6-1.0); POTASSIUM 4.3 mmol/L (3.5-5.1)
[2018-10-03 04:57] LABS: HEMATOCRIT 24.3 % (37.0-47.0); HEMOGLOBIN 7.7 gm/dL (12.0-15.0); MCH 27.2 pg (26.0-34.0); MCHC 31.6 g/dL (28.0-37.0); MCV 86.1 fL (80.0-100.0); RBC 2.83 mil/uL (4.20-5.00); RDW 18.6 % (10.5-14.5); WBC 13.3 thou/uL (4.0-11.0)
[2018-10-03 08:06] VITALS: BP 112/49
--- NOTE | 2018-10-03 10:24 | NUR ---
Case opened to follow for dc planning. Supervisor [employer] visited with the pt and her spouse at bedside. The pt is a ltc resident of [facility] for approx 9 years. She is non verbal and total care. She is on o2 at 2-3 liters. Her spouse is anticicpating her return there at de. They are holding her bed and have been updated. Will follow to assist with her return to the [facility] when indicated. She will need a stretcher van at de.
[2018-10-03 11:09] LABS: TOTAL PROTEIN 6.3 g/dL (6.4-8.2)
[2018-10-03 12:12] VITALS: BP 100/47
--- NOTE | 2018-10-03 16:47 | NUR ---
ASSESSMENT CHARTED - MEDS PER MAY - PT TURNED - BOTTOM WITH ONE AREA OF REDNESS BETWEEN BOTOM CHEEKS THAT STATES IS FROM THE RESIDENTIAL AND THEY HAD BRIEFS OF PATIENT THE WERE TOO SMALL. PT WITH EXTERNAL FEMALE CATH INITU - MARIA FERNANDA COLOURED URINE. IV FLUIDS CONTINUE ORDERED. PT WITH CT SCAN COMPLETED THIS AFTERNOON. MOUTH CARE GIVEN. COUNSULT FOR PULMONARY NOTED. AT THE BEDSIDE FOR THE AM. PATIENT APPEARS TO BE RESTING COMFORTABLY AT THE PRESENT TIME.
[2018-10-03 16:51] VITALS: BP 106/60
[2018-10-03 18:07] LABS: BODY FLUID LDH 326 IU/L (())
[2018-10-03 20:30] VITALS: BP 120/60
[2018-10-04] VITALS (8 sets, daily range): BP systolic 104–151; BP diastolic 52–111
--- NOTE | 2018-10-04 00:54 | NUR ---
ASSUMED CARE OF PATIENT AT 1900. VSS, AFEBRILE. SUCTION PLACED IN ROOM, SIGNIFICANT ORAL CARE AND SUCTIONING PROVIDED THROUGH THE NIGHT. TOLERATES WELL. TURNED Q2. PUREWICK CATHETER IN PLACE WITH ADEQUATE URINE OUTPUT. WORKING TOWARDS POC GOALS.
[2018-10-04 08:51] LABS: SOURCE PLEURAL
[2018-10-04 09:19] LABS: HEMATOCRIT 26.1 % (37.0-47.0); MCH 26.4 pg (26.0-34.0); MCHC 30.7 g/dL (28.0-37.0); MCV 85.8 fL (80.0-100.0); RBC 3.04 mil/uL (4.20-5.00); RDW 19.2 % (10.5-14.5); WBC 15.7 thou/uL (4.0-11.0)
[2018-10-04 09:32] LABS: ALBUMIN 2.7 g/dL (3.4-5.0); CALCIUM 8.4 mg/dL (8.5-10.1); CREATININE 1.4 mg/dL (0.6-1.0); MAGNESIUM 2.3 mg/dL (1.8-2.4); POTASSIUM 4.3 mmol/L (3.5-5.1); TOTAL BILIRUBIN 0.2 mg/dL (<0.1-1.0)
[2018-10-04 12:04] LABS: BE(vivo) -4.7 mmol/L (-2 to +3); HCO3 20.1 mmol/L (22.0-26.0); PCO2 35.9 mmHg (35.0-45.0); PO2 76.9 mmHg (80.0-100.0); pH 7.367 (7.360-7.450); sO2 95.1 % (92.0-98.0)
--- NOTE | 2018-10-04 16:46 | NUR ---
ASSESSMENT CHARTED - PT WITH LABOURED BREATHING THIS SHIFT - 'S AWARE - ABG'S COMPLETED RESULTS ON CHART. PT STARTED ON VANC THIS AM AND ZOZYN - WITH INFECTIOUS DISEASE CONSULT NOTED. PT ALSO STARTED ON PVD AND IVP - DUE TO LUNG STATUS. BREATH SOUNDS ARE COARSE THROUGHOUT. PT WITH EYES OPEN MOST OF THE DAY - DID NAP ON OCCASSION. PT DOES NOT LIKE TO BE MOVED ABOUT IN THE BED OR HAVE MOUTH CARE PERFORMED DOES BECOME AGGITATED WHEN THIS IS COMPLETED. PT WITH LARGE BM THIS SHIFT. APPEARS TO BE RESTING COMFORTABLY AT THE PRESENT TIME.
--- NOTE | 2018-10-04 19:01 | HC ---
[facility] [place] [address] CONSULTATION Name: KALIA LIRA Room #: 219-P ADM IN M.R.#: [id number] Admission: 10/01/18 ������������������ Attend Phys: Rasta Hunt MD Discharge: ������������������ Date of : 51 Report #: [id number] THIS REPORT FOR: //name// CC: Rasta Hunt Sofía Patel DATE OF SERVICE: 10/03/2018 REFERRAL PHYSICIAN: Dr. Poole. REASON FOR REFERRAL: Pleural effusion. HISTORY OF PRESENT ILLNESS: The patient is a 62-year-old white female with advanced dementia, history of CVA, brought to the ED with progressive dyspnea. A pulmonary consultation was requested. The patient has been previously seen by the Pulmonary Service. She was last hospitalized in 07/2018. When she was seen in June, she was found to have a right-sided pleural effusion along with pneumonia. Thoracentesis yielded exudative fluid. Her current chest x-ray revealed oibwufbd-oc-oayjc -sided pleural effusion. She recently underwent thoracentesis. Currently, she is awake, but does not follow commands. She appears tachypneic. She has increased upper respiratory breath sounds. PAST MEDICAL HISTORY: Notable for hypertension, CVA as mentioned above, advanced dementia, chronic ITP, chronic kidney disease, dementia, dysphagia status post PEG tube placement, hyperlipidemia, moderate to severe mitral regurgitation, her ejection fraction 55% from echocardiogram from 06/2018. She also has a history of depression, hypothyroidism. ALLERGIES: PENICILLIN REACTIONS UNSPECIFIED. SHE IS ALSO ALLERGIC TO TUBERCULIN PURIFIED PROTEIN DERIVATIVE REACTIONS UNSPECIFIED, MOXIFLOXACIN REACTIONS UNSPECIFIED, OXYCODONE REACTIONS UNSPECIFIED. MEDICATIONS: From the facility include Desyrel, Synthroid, MiraLax, omeprazole, senna, vitamin B supplements, fluoxetine, multivitamins, Tylenol p.r.n. FAMILY HISTORY: Noncontributory. SOCIAL HISTORY: She is , currently resides at a facility. No passive tobacco or alcohol use. REVIEW OF SYSTEMS: As mentioned above, otherwise deferred as the patient is not [facility] [address] [place] [address] CONSULTATION Name: KALIA LIRA Room #: 219-P [facility] IN M.R.#: [id number] Admission: 10/01/18 ������������������ Attend Phys: Rasta Hunt MD Discharge: ������������������ Date of : 51 Report #: [id number] able to provide much history. PHYSICAL EXAMINATION: GENERAL: She is awake, but does not follow commands. She appears mildly tachypneic with increased upper respiratory breath sounds. VITAL SIGNS: Temperature is 98 degrees Fahrenheit, pulse is 90, respiratory rate is 18, blood pressure 100/47 mmHg, saturation 95%. HEENT: Normocephalic, atraumatic. NECK: Supple, without lymphadenopathy or thyromegaly. CHEST: Breath sounds are coarse bilaterally. Decreased in the right base. CARDIOVASCULAR: Normal S1, S2. No murmurs or gallop. There is no JVD and no carotid bruit. Pulses are 2+/4+ bilaterally. ABDOMEN: Soft, nontender, no organomegaly or masses felt. GENITOURINARY: Deferred. RECTAL: Deferred. EXTREMITIES: There is no edema, cyanosis or clubbing. NEUROLOGIC: She does not track, does not follow commands. Eyes are open. She moves her extremities. LABORATORY DATA: Chest x-ray again shows rhnbufhl-np-kfiyb right-sided pleural effusion. Sodium 141, potassium 4.3, chloride 106, CO2 is 25, BUN 22, creatinine is 1.4. Liver enzymes are grossly unremarkable. WBC 13,500, hemoglobin 7.4, platelets are mildly decreased. Albumin 2.0. IMPRESSION: 1. Recurrent large right-sided pleural effusion, likely related to recent pneumonia, along with heart failure. Malignancy is felt to be less likely. 2. Acute hypoxic respiratory failure due to above along with increased respiratory secretions with inability to clear secretions. 3. Idiopathic thrombocytopenic purpura, profound thrombocytopenia. 4. Bguixzao-yw-omvmjx mitral regurgitation with likely component of heart failure. 5. Cerebrovascular accident with aphasia, progressive weakness, status post PEG tube placement. 6. Acute kidney injury/chronic kidney disease. 7. Advanced dementia. 8. Medical directive: She is a DNR. RECOMMENDATION: Agree with thoracentesis. We will await the pleural fluid studies. Respiratory hygiene as tolerated. Suction p.r.n. Continue current care including antibiotics to complete 7-10 day course. Overall outlook appears to be poor given recurrent respiratory compromise over the last couple of months. Suspect muscle weakness and debility is worsening resulting in inability to clear respiratory secretions among others. [address] [address] CONSULTATION Name: KALIA LIRA Room #: 219-P ADM IN M.R.#: [id number] Admission: 10/01/18 ������������������ Attend Phys: Rasta Hunt MD Discharge: ������������������ Date of : 51 Report #: [id number] I had a detailed discussion with the . At this time, he voices understanding and is understanding that her condition would likely worsen. I recommended him to consider possible hospice care. He will let us know when he makes the decision. Thank you for this consultation. ��������������������������������������������� <ELECTRONICALLY SIGNED> ���������������������������������������� By: Norberto Schuster MD ��������������������������������������������� 10/04/18 1901 1334 1451 Norberto Schuster MD /nt
[2018-10-04 21:18] LABS: BE(vivo) -10.6 mmol/L (-2 to +3); HCO3 18.8 mmol/L (22.0-26.0); PCO2 60.6 mmHg (35.0-45.0); PO2 89.5 mmHg (80.0-100.0); pH 7.109 (7.360-7.450); sO2 93.3 % (92.0-98.0)
[2018-10-04 21:35] LABS: HEMATOCRIT 31.6 % (37.0-47.0); HEMOGLOBIN 8.9 gm/dL (12.0-15.0); MCH 26.9 pg (26.0-34.0); MCHC 28.3 g/dL (28.0-37.0); RBC 3.32 mil/uL (4.20-5.00); RDW 19.3 % (10.5-14.5); WBC 21.1 thou/uL (4.0-11.0)
--- NOTE | 2018-10-04 21:37 | NUR ---
AMBULATORY TECHNOLOGIST called at 2058 for increased SOA and decreased o2 sats. see AMBULATORY TECHNOLOGIST flowsheet.
[2018-10-04 21:43] LABS: CALCIUM 8.3 mg/dL (8.5-10.1); CREATININE 1.5 mg/dL (0.6-1.0)
[2018-10-04 21:49] LABS: ALBUMIN 2.9 g/dL (3.4-5.0); TOTAL BILIRUBIN 0.5 mg/dL (<0.1-1.0); TOTAL PROTEIN 7.2 g/dL (6.4-8.2)
[2018-10-04 21:54] LABS: POTASSIUM 5.8 mmol/L (3.5-5.1)
[2018-10-05 04:56] LABS: HEMATOCRIT 30.3 % (37.0-47.0); HEMOGLOBIN 8.8 gm/dL (12.0-15.0); MCH 26.6 pg (26.0-34.0); MCHC 29.2 g/dL (28.0-37.0); MCV 91.1 fL (80.0-100.0); RBC 3.32 mil/uL (4.20-5.00); RDW 18.4 % (10.5-14.5); WBC 29.1 thou/uL (4.0-11.0)
[2018-10-05 05:08] LABS: CALCIUM 8.5 mg/dL (8.5-10.1); CREATININE 1.9 mg/dL (0.6-1.0); MAGNESIUM 2.4 mg/dL (1.8-2.4); POTASSIUM 5.1 mmol/L (3.5-5.1)
[2018-10-05 05:30] VITALS: BP 90/58
--- NOTE | 2018-10-05 06:11 | NUR ---
ASSUMED CARE AT 1900. PATIENT WAS TACHYPNIC AND TACHYCARDIA HR >120 S/P SACTIONING. AFTER ABOUT 30 MIS, PT CONTINUED TO BE SUSTAIN HR >120. UPTO 160S. RT NOTIFIED. [employer] VICE PRESIDENT LUIS NOTIFIED. NT SUCTIONING DONE. ORDER FOR LOPRESSOR 5MG IV PUSH GIVEN. RATE CONTROLLED AFTER LOPRESSOR. CRITICAL BG GASES. PT PUT ON BIPAP PULMONARY DR. DEGROOT NOTIFIED. MORPHINE Q1H PRN RECEIVED. UPDATED OF CHANGE IN PT CONDITION, AND AGREES TO BIPAP BUT NO INTUBATION. CAME TO HOSPITAL WITHIN 15 MINUTES OF NOTIFICATION. CARE CURRENTLY FOCUSED ON KEEPING PT COMFORTABLE POSSIBLE. PT O2 SATS SUSTANING IN 80S WITH 100% FIO2. CONTINOUS PULSE OX DC'D. PT CHECKED ON FREQUENTLY WITH Q2 TURNS. OTHER ASSESSMENTS DOCUMENTED . WILL CONTINUE TO FOLLOW POC.
[2018-10-05 07:19] VITALS: BP 102/52
--- NOTE | 2018-10-05 09:26 | NUR ---
PT CARE ASSUMED APPROX 0730. PT UNRESPONSIVE AND ON BIPAP. VSS. AT BEDSIDE. THIS NURSE WAS CALLED TO GO TO PT ROOM APPROX 0807 BY LABOR ECONOMICS PROFESSOR. LABOR ECONOMICS PROFESSOR REPORTED LOW HR. A SECOND NURSE THAT WAS SEEN IN ROUTE TO PT'S ROOM WAS ASKED TO FOLLOW TO PT'S BEDSIDE. ONCE AT BEDSIDE IT WAS NOTED RT WAS PRESENT. THIS NURSE NOTED AN ABSENT APICAL PULSE UPON AUSCULTATION. SENCOND NURSE ALSO NOTED ABSENT APICAL PULSE ON AUSCULTATION. WAS MADE AWARE THAT WE WERE PRONOUNCING . HE DECLINED HOLD WORKER. HE WAS GIVEN A MOMENT AND SHORTLY AFTER THAT HE TOLD NURSING HE WAS LEAVING. POST MORTEM CARE COMPLETED PER PROTOCOL. EXPIRATION DOCUMENTATION COMPLETED PER POLICY. SEE DOCUMENTATION FOR FURTHER DETAILS OF PT EXPIRATION.
--- NOTE | 2018-10-05 09:36 | NUR ---
NO BELONGINGS AT BEDSIDE
[2018-10-05 10:10] LABS: BODY FLUID ALBUMIN 2.7 g/dL (()); BODY FLUID AMYLASE 40 U/L (()); BODY FLUID GLUCOSE 161 mg/dL (())
--- NOTE | 2018-10-05 10:22 | NUR ---
Pt this morning. Pt's spouse at [facility] to collect the pt's belongings and asking for assistance in making arrangements. He reports that they have no life ins or funds for burial. Stacie at [facility] has printed the [facility] application for him to complete. He is agreeable to cremation. Will follow to assist with notary and submission of the application. Security updated.
--- NOTE | 2018-10-05 13:08 | PATH ---
[facility] [address] [place] [address] PATHOLOGY RPT PROCEDURE Name: KALIA LIRA Room #: 219-P DIS IN M.R.#: [id number] ������������������ Admission: 10/01/18 ������������������ Date of : 51 Discharge: 10/05/18 Report #: [id number] Path Case #: [id number] Note [facility] Accession Number: [id number] TESTS RESULT FLAG UNITS REF RANGE LAB Clinician Provided Cytology Information No. of containers..01 Other (Miscellaneous) Source: PLEURAL FLUID DIAGNOSIS: 02 PLEURAL FLUID NEGATIVE FOR MALIGNANT CELLS. REACTIVE MESOTHELIAL CELLS ARE PRESENT. THIS INTERPRETATION INCLUDES EVALUATION OF A CELL BLOCK. Pathologist ICD10: 02 J90 Signed out by: Hiwot Morrison MD, Pathologist NPI- [id number] Performed by: Adarsh Smyth, Imaging Account Manager ([facility]) Gross description: 01 23ML, YELLOW, CLOUDY /LCS FLAG LEGEND: L-Low Normal,H-High Normal,LL-Alert Low,HH-Alert High <-Panic Low,>-Panic High,A-Abnormal,AA-Critical Abnormal Performed at: [address] [place] [address] Wang Vigil MD, [address] [address] Hiwot Morrison MD, Specimen Comment: A duplicate report has been generated due to demographic updates. Performed at: [address], [place], [place] [id number] MD Wang Vigil MD Phone: [phone]
--- NOTE | 2018-10-05 15:05 | HC ---
[facility] [place] [address] CONSULTATION Name: KALIA LIRA Room #: 219-[facility] IN M.R.#: [id number] Admission: 10/01/18 ������������������ Attend Phys: Rasta Hunt MD Discharge: 10/05/18 ������������������ Date of : 51 Report #: [id number] THIS REPORT FOR: //name// CC: Rasta Hunt Sofía Patel DATE OF SERVICE: 10/04/2018 TYPE OF REPORT: Infectious diseases consultation. REASON FOR CONSULTATION: I was asked to evaluate concerning healthcare-associated pneumonia and respiratory failure. HISTORY OF PRESENT ILLNESS: The patient is a 62-year old admitted on 10/01/2018 with increased pleural effusion, urinary tract infection. She has known congestive heart failure and severe mitral regurgitation along with aspiration risk following stroke who is nonverbal. Also, has ITP and requires Rituxan treatment for such. Presents with shortness of breath. No fever or chills noted. She has had progressive decline over several weeks. The patient was noncommunicative. Since her hospitalization, she has been placed on broad antibiotic coverage. Today, she was started on vancomycin and meropenem. Her oxygen requirements have increased significantly from 1 liter now up to 8 liters. She has been more congested. She had an episode of tachycardia with heart rate in the 150 range. This did improve with a dose of Lopressor. She has had no hypotensive episodes. No gross aspiration identified. She does have gained her nutrition through a PEG tube. Did discuss the case with nursing services and respiratory therapist at the bedside. NT suction has been done with fairly light colored thick tracheal secretions. She has had no evidence of hemoptysis. Unclear if she has had any chest pain. There has been no vomiting identified or diarrhea. She has had reasonable urine output. She does have malnutrition and anasarca. She has an indwelling Barbour catheter. Initial urinalysis showed pyuria and bacteriuria. Initial troponin with antibiotic therapy included ceftriaxone, now on vancomycin and meropenem. She underwent a right thoracentesis for large right pleural effusion. One liter of fluid was aspirated, which has so far the studies have shown exudative effusion. Final reports are still pending. She has had previous aspiration, healthcare-associated pneumonias in the past. ALLERGIES: PENICILLIN, OXYCODONE, PPD, MOXIFLOXACIN and OXYCODONE. MEDICATIONS: As noted on her MAR including her antibiotics and corticosteroids. PAST MEDICAL HISTORY: Stroke, hypertension, diabetes, hypothyroidism, dementia, depression and dysphagia. FAMILY HISTORY: Noncontributory. [address] [address] CONSULTATION Name: KALIA LIRA Room #: 219-[facility] IN M.R.#: [id number] Admission: 10/01/18 ������������������ Attend Phys: Rasta Hunt MD Discharge: 10/05/18 ������������������ Date of : 51 Report #: [id number] SOCIAL HISTORY: Nonsmoker. No significant alcohol intake. REVIEW OF SYSTEMS: Ten-point review was negative other than what is described above. The patient was unable to give any further details. PHYSICAL EXAMINATION: VITAL SIGNS: She was afebrile. GENERAL: She was in respiratory distress and coarse breath sounds bilaterally audible at the side of the bed. She is on 8 liters of oxygen per nasal cannula. She was edematous. No rashes or decubiti noted. No peripheral adenopathy noted. HEENT: Eyes, without scleral icterus. Mouth, unable to further evaluate for she would not open to command. Her dentition was in poor repair in the lower teeth. Appeared to be edentulous in the uppers. NECK: Supple. No thyromegaly or mass appreciated. LUNGS: Coarse bilaterally with no definite consolidation. No rub. HEART: Regular with a 2/6 systolic murmur at the apex. She was tachycardic. ABDOMEN: Mildly distended. No appreciable mass or hepatosplenomegaly. GENITOURINARY: External genitalia unremarkable with no lesions or rash. RECTAL: Not performed. EXTREMITIES: Edematous, diaphoretic, pale. LABORATORY STUDIES: Sodium 142, potassium 4.3, bicarbonate 22 and creatinine 1.4. Liver function test normal. Hemoglobin 8; platelet count was 45,000 and white count 15.7. Blood cultures are pending. Thoracentesis culture pending. No sputum culture or urine culture available. Thoracentesis showed a pH of 7.5, protein and glucose are pending and LDH was 326. RADIOLOGICAL DATA: Chest x-ray showed bilateral infiltrates with new infiltrate in the left upper lobe and a large right pleural effusion. IMPRESSION: 1. A 62-year-old with previous stroke, now with respiratory failure, aspiration, healthcare-associated pneumonia, congestive heart failure. 2. Urinary tract infection related to indwelling Barbour catheter. 3. Idiopathic thrombocytopenia, on immunosuppression, underlying dementia, malnutrition. 4. Exudative right pleural effusion, which is recurring. 5. Allergy to penicillin. RECOMMENDATIONS: We will continue broad antibiotic coverage. Add azithromycin to the mix. Continue with corticosteroids. We would add diuresis to her current program. We will screen her sputum culture, urine culture. Await blood cultures. Check for atypical bacteria and virus. She will continue with full support in the CCU. Discussed with respiratory therapy regarding NT suctioning [facility] [address] [place] [address] CONSULTATION Name: KALIA LIRA Room #: 219-P [facility] IN M.R.#: [id number] Admission: 10/01/18 ������������������ Attend Phys: Rasta Hunt MD Discharge: 10/05/18 ������������������ Date of : 51 Report #: [id number] and gaining reasonable samples for analysis and culture. Continue with aspiration precautions. Cordell in this situation appears guarded considering her other comorbidities. ��������������������������������������������� <ELECTRONICALLY SIGNED> ���������������������������������������� By: Oj Gonzalez MD ��������������������������������������������� 10/05/18 [id number] Oj Gonzalez MD /nt
--- NOTE | 2018-10-06 10:49 | EKG ---
[address] [address] ELECTROCARDIOGRAM REPORT Name: KALIA LIRA Room #: 219-[facility] IN M.R.#: [id number] ������������������ Admission: 10/01/18 ������������������ Attend Phys: Rasta Hunt MD Discharge: 10/05/18 ������������������ Date of : 51 Report #: [id number] ����������������������������������������������������������������� [id number] THIS REPORT FOR: //name// [facility] Test Date: 2018-10-04 Test Time: 21:10:18 Pat Name: KALIA LIRA Department: Room: 219 Gender: F Code Enforcement Inspector: Maik MAYFIELD : 1955 Requested By: Susie Cervantes Order Number: [id number] MD: Sarwat Xiong Measurements Intervals [place] Rate: 124 P: -7 PA: 95 QRS: 88 QRSD: 105 T: 6 QT: 367 QTc: 528 Interpretive Statements Baseline artifact Probable sinus tachycardia Low voltage Minimal ST depression, anterolateral leads Prolonged QT interval Compared to ECG 06/30/2018 10:07:45 Prolonged QT interval now present Electronically Signed On 10-06-2018 10:49:14 CDT by Sarwat Xiong [email or web address] ��������������������������������������������� <ELECTRONICALLY SIGNED> ���������������������������������������� By: Sarwat Xiong MD, [facility] ��������������������������������������������� 10/06/18 1049 09 09 Sarwat Xiong MD, [facility] /EPI
[2018-10-06 14:08] LABS: BODY FLUID PROTEIN 5.1 g/dL (())
== END 2018-10-05 08:10 | DRG 177 ==
LOC: ER 12:32 → 2N 14:47 → EROBS 14:47 → 2N 20:00
PROVIDERS: Emergency Medicine; Internal Medicine; Nurse Practitioner; Nurse Practitioner Acute Care; ADMIT Hospitalist
PROC: 0W993ZZ Drainage of Right Pleural Cavity, Percutaneous Approach (ICD-10-PCS; principal; 2018-10-02)
PROC: 30233R1 Transfusion of Nonautologous Platelets into Peripheral Vein, Percutaneous Approach (ICD-10-PCS; principal; 2018-10-02)
PROC: 5A09357 Assistance with Respiratory Ventilation, Less than 24 Consecutive Hours, Continuous Positive Airway Pressure (ICD-10-PCS; 2018-10-04)
PROC: 5A09357 Assistance with Respiratory Ventilation, Less than 24 Consecutive Hours, Continuous Positive Airway Pressure (ICD-10-PCS; 2018-10-05)
DX: J69.0 Pneumonitis due to inhalation of food and vomit (principal); J96.01 Acute respiratory failure with hypoxia; N17.9 Acute kidney failure, unspecified; N39.0 Urinary tract infection, site not specified; J91.8 Pleural effusion in other conditions classified elsewhere; D69.3 Immune thrombocytopenic purpura; E46 Unspecified protein-calorie malnutrition; I13.0 Hypertensive heart and chronic kidney disease with heart failure and stage 1 through stage 4 chronic kidney disease, or unspecified chronic kidney disease; E03.9 Hypothyroidism, unspecified; F03.90 Unspecified dementia, unspecified severity, without behavioral disturbance, psychotic disturbance, mood disturbance, and anxiety; E78.5 Hyperlipidemia, unspecified; F32.9 Major depressive disorder, single episode, unspecified; R13.10 Dysphagia, unspecified; Z66 Do not resuscitate; E11.22 Type 2 diabetes mellitus with diabetic chronic kidney disease; N18.9 Chronic kidney disease, unspecified; I34.0 Nonrheumatic mitral (valve) insufficiency; I50.9 Heart failure, unspecified; Z88.6 Allergy status to analgesic agent; Z88.1 Allergy status to other antibiotic agents; Z88.8 Allergy status to other drugs, medicaments and biological substances; I69.320 Aphasia following cerebral infarction; Z93.1 Gastrostomy status; Z68.35 Body mass index [BMI] 35.0-35.9, adult
CPT/HCPCS: 10081